=== PATIENT | female | born 1995 | race Caucasian/White ===

== ENCOUNTER 2017-03-18 13:37 | Emergency (ER) | payer OTHER ==
--- NOTE | 2017-03-18 14:25 | EDM.PDOC ---
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 A door of a commercial washer struck her in the nose. She now has a scratch on the bridge of her nose. No other injuries. - Related Data Allergies/ADRs: Allergies Allergy/AdvReac Type Severity Reaction Status Date / Time No Known Allergies Allergy Verified 03/18/17 13:57 Home Meds: Home Meds Control Pill 1 tab PO DAILY 05/02/15 [History] Omeprazole 20 mg PO DAILY 03/18/17 [History] Spironolactone [Aldactone] 12.5 mg PO DAILY 03/18/17 [History] Past Medical History - Past Health History Medical/Surgical History: Denies Medical/Surgical History Social & Family History - Family History Family Medical History: Noncontributory - Tobacco Use Smoking Status *Q: Never Smoker Years of Tobacco use: 7 Used Tobacco, but Quit: No Second Hand Smoke Exposure: No - Caffeine Use Caffeine Use: Reports: None - Alcohol Use Days Per Week of Alcohol Use: 2 Number of Drinks Per Day: 3 Total Drinks Per Week: 6 - Recreational Drug Use Recreational Drug Use: No ED ROS ENT - Review of Systems Review Of Systems: ROS reveals no pertinent complaints other than HPI. ED EXAM, ENT - Physical Exam Exam: See Below Exam Limited By: No limitations General Appearance: alert, no apparent distress Eye Exam: bilateral eye: EOMI, PERRL Ears: normal external exam Nose: normal inspection Mouth/Throat: Normal inspection Head: atraumatic, normocephalic Neck: normal inspection Respiratory/Chest: no respiratory distress, lungs clear Cardiovascular: normal peripheral pulses, regular rate, rhythm, no murmur GI/Abdominal: soft Neurological: alert, oriented Psychiatric: normal affect, normal mood Skin: Warm, Dry, Intact, Normal color, No rash, Other (0.5 cm skin scratch over bridge of nose. No swelling, bruising, crepitus or deformity of the nasal bridge) Lymphatic: no adenopathy Course - Vital Signs Last Recorded V/S: Last Vital Signs Temp 36.1 C 03/18/17 13:53 Pulse 70 03/18/17 13:53 Resp 16 03/18/17 13:53 BP 118/70 03/18/17 13:53 Pulse Ox 98 03/18/17 13:53 Departure - Departure Time of Disposition: 14:22 Disposition: Home, Self-Care 01 Condition: good Clinical Impression: Laceration Referrals: Cecy Reyes NP [Primary Care Provider] - [facility] [Outside] Forms: ED Department Discharge Additional Instructions: 1. Keep wound clean and dry. 2. Follow up in primary care or occupational health for return to work.
[2017-03-18 14:37] VITALS: BP 126/70
== END 2017-03-18 14:34 | disposition home or self-care (01) ==
LOC: MW.ED 13:37
DX: S01.21XA Laceration without foreign body of nose, initial encounter (principal); Z79.899 Other long term (current) drug therapy; W22.8XXA Striking against or struck by other objects, initial encounter; Y99.0 Civilian activity done for income or pay
CPT/HCPCS: 99282

== ENCOUNTER 2018-06-28 20:07 | Emergency (ER) | payer OTHER ==
[2018-06-28] MEDS ORDERED: Sodium Chloride 0.9% 1,000 ML IV ONE (20:10)
[2018-06-28] MEDS ORDERED: Ketorolac 30 MG/ML SDV IVPUSH ONE (20:10)
--- NOTE | 2018-06-28 20:20 | EDM.PDOC ---
ED HPI GENERAL MEDICAL PROBLEM - General Chief Complaint: Chest Pain Stated Complaint: CHEST PAIN. Time Seen by Provider: 06/28/18 20:09 Source of Information: Reports: Patient History Limitations: Reports: No Limitations - History of Present Illness INITIAL COMMENTS - FREE TEXT/NARRATIVE: HISTORY AND PHYSICAL: History of present illness: patient is a 23-year-old female who presents to emergency room today wit complaints of midsternal chest pain 2 weeks. She states last week she saw Dr. Coley at [facility] and was prescribed omeprazole, prednisone and Diclofenac. She was diagnosed with what sounds like costochondritis. She states that the pain has not improved and she is concerned. she states the pain is worse with movement or touch. Pain is alleviated by rest. she denies any fever, chills, cough, abdominal pain, nausea, vomiting, diarrhea or constipation. No history of smoking. Review of systems: As per history of present illness and below otherwise all systems reviewed and negative. Past medical history: As per history of present illness and as reviewed below otherwise noncontributory. Surgical history: As per history of present illness and as reviewed below otherwise noncontributory. Social history: No reported history of drug or alcohol abuse. Family history: As per history of present illness and as reviewed below otherwise noncontributory. Physical exam: General: well-developed and well-nourished 33-year-old female. Alert and oriented. Nontoxic appearing and in no acute distress. HEENT: Atraumatic, normocephalic, pupils equal and reactive bilaterally, negative for conjunctival pallor or scleral icterus, mucous membranes moist, throat clear, neck supple, nontender, trachea midline. No drooling or trismus noted. No meningeal signs Lungs: Clear to auscultation, breath sounds equal bilaterally, chest pain is reproducible with palpation Heart: S1S2, regular rate and rhythm without overt murmur Abdomen: Soft, nondistended, nontender. Negative for masses or hepatosplenomegaly. Negative for costovertebral tenderness. Pelvis: Stable nontender. 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: Deferred. Rectal: Deferred. Skin: Intact, warm, dry. No lesions or rashes noted. Extremities: Atraumatic, negative for cords or calf pain. Neurovascular unremarkable. Neuro: Awake, alert, oriented. Cranial nerves II through XII unremarkable. Cerebellum unremarkable. Motor and sensory unremarkable throughout. Exam nonfocal. Notes: Patient does have a slightly elevated WBC, without evidence of pneumonia or infiltrate. patient states she has been routinely using the medications that were prescribed to her last week without much relief. Supportive care measures were reviewed and discussed. She voices understanding and is agreeable to plan of care. Denies any further questions or concerns at this time. Diagnostics: CBC, CMP, CXR, H.Pylori [employer]: Normal Saline, Toradol Prescription: [facility]pack Tramadol Impression: Costochondritis Plan: 1. Please continue taking the medications that Dr. Woodard had prescribed. 2. Tramadol as needed for moderate to sever pain. 3. Follow up with your primary care provider in the next 1-2 days. Return to the ED as needed as discussed. Definitive disposition and diagnosis as appropriate pending reevaluation and review of above. Chest Pain Score (Numeric/FACES): 10 - Related Data Allergies Allergy/AdvReac Type Severity Reaction Status Date / Time No Known Allergies Allergy Verified 03/18/17 13:57 Home Meds: Home Meds Control Pill 1 tab PO DAILY 05/02/15 [History] Omeprazole 20 mg PO DAILY 03/18/17 [History] Spironolactone [Aldactone] 12.5 mg PO DAILY 03/18/17 [History] Past Medical History - Past Health History Medical/Surgical History: Denies Medical/Surgical History HEENT History: Reports: None Cardiovascular History: Reports: None Respiratory History: Reports: None Gastrointestinal History: Reports: None 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 History: Reports: Other (See Below) Other 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 History: PCOS 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 Musculoskeletal History: Reports: None Neurological History: Reports: None Psychiatric History: Reports: None Endocrine/Metabolic History: Reports: None Hematologic History: Reports: None Immunologic History: Reports: None Oncologic (Cancer) History: Reports: None Dermatologic History: Reports: None - Infectious Disease History Infectious Disease History: Reports: None - Past Surgical History Head Surgeries/Procedures: Reports: None HEENT Surgical History: Reports: None Cardiovascular Surgical History: Reports: None Respiratory Surgical History: Reports: None GI Surgical History: Reports: None Musculoskeletal Surgical History: Reports: None Dermatological Surgical History: Reports: None Social & Family History - Family History Family Medical History: Noncontributory - Caffeine Use Caffeine Use: Reports: None ED ROS GENERAL - Review of Systems Review Of Systems: ROS reveals no pertinent complaints other than HPI. ED EXAM, GENERAL - Physical Exam Exam: See Below (See dictation) Course - Vital Signs Last Recorded V/S: Last Vital Signs Temp 98.4 F 06/28/18 20:16 Pulse 78 06/28/18 20:16 Resp 18 06/28/18 20:16 BP 140/92 H 06/28/18 20:16 Pulse Ox 98 06/28/18 20:16 - Orders/Labs/Meds Orders: Active Orders 24 hr Category Date Time Status EKG Documentation Completion [RC] STAT Care 06/28/18 20:10 Active Chest 2V [CR] Stat Exams 06/28/18 20:10 Taken HCG QUALITATIVE,URINE [URCHEM] Stat Lab 06/28/18 20:32 Ordered URINALYSIS W/MICROSCOPIC [UA W/MICROSCOPIC] [URIN] Stat Lab 06/28/18 20:32 Ordered Labs: Laboratory Tests 06/28/18 06/28/18 06/28/18 Range/Units 20:14 20:14 20:32 WBC 14.55 H (4.0-11.0) K/uL RBC 4.68 (4.30-5.90) M/uL Hgb 14.2 (12.0-16.0) g/dL Hct 41.3 (36.0-46.0) % MCV 88.2 (80.0-98.0) fL MCH 30.3 (27.0-32.0) pg MCHC 34.4 (31.0-37.0) g/dL RDW Std Deviation 40.6 (28.0-62.0) fl RDW Coeff of Akash 13 (11.0-15.0) % Plt Count 287 (150-400) K/uL MPV 10.20 (7.40-12.00) fL Neut % (Auto) 75.4 (48.0-80.0) % Lymph % (Auto) 20.0 (16.0-40.0) % [place] % (Auto) 4.4 (0.0-15.0) % Eos % (Auto) 0.1 (0.0-7.0) % Baso % (Auto) 0.1 (0.0-1.5) % Neut # (Auto) 11.0 H (1.4-5.7) K/uL Lymph # (Auto) 2.9 H (0.6-2.4) K/uL [place] # (Auto) 0.6 (0.0-0.8) K/uL Eos # (Auto) 0.0 (0.0-0.7) K/uL Baso # (Auto) 0.0 (0.0-0.1) K/uL Nucleated RBC % 0.0 /100WBC Nucleated RBCs # 0 K/uL Sodium 140 (136-145) mmol/L Potassium 3.5 (3.5-5.1) mmol/L Chloride 102 (98-107) mmol/L Carbon Dioxide 26.0 (21.0-32.0) mmol/L BUN 11 (7.0-18.0) mg/dL Creatinine 0.9 (0.6-1.0) mg/dL Est Cr Clr Drug Dosing 79.04 mL/min Estimated GFR (MDRD) > 60.0 ml/min Glucose 126 H (74-106) mg/dL Calcium 9.2 (8.5-10.1) mg/dL Total Bilirubin 0.3 (0.2-1.0) mg/dL AST 19 (15-37) IU/L ALT 42 (14-63) IU/L Alkaline Phosphatase 75 (46-116) U/L Total Protein 8.1 (6.4-8.2) g/dL Albumin 4.1 (3.4-5.0) g/dL Globulin 4.0 H (2.0-3.5) g/dL Albumin/Globulin Ratio 1.0 L (1.3-2.8) Urine Color YELLOW Urine Appearance CLEAR Urine pH 6.0 (5.0-8.0) Ur Specific [place] >= 1.030 (1.001-1.035) Urine Protein NEGATIVE (NEGATIVE) mg/dL Urine Glucose (UA) NEGATIVE (NEGATIVE) mg/dL Urine Ketones NEGATIVE (NEGATIVE) mg/dL Urine Occult Blood MODERATE (NEGATIVE) Urine Nitrite NEGATIVE (NEGATIVE) Urine Bilirubin NEGATIVE (NEGATIVE) Urine Urobilinogen 0.2 (<2.0) EU/dL Ur Leukocyte Esterase NEGATIVE (NEGATIVE) Urine RBC 2-4 (0-2/HPF) Urine WBC 0-2 (0-5/HPF) Ur Epithelial Cells MODERATE (NONE-FEW) Urine Bacteria FEW (NEGATIVE) Urine HCG, Qual (NEGATIVE) 06/28/18 Range/Units 20:32 WBC (4.0-11.0) K/uL RBC (4.30-5.90) M/uL Hgb (12.0-16.0) g/dL Hct (36.0-46.0) % MCV (80.0-98.0) fL MCH (27.0-32.0) pg MCHC (31.0-37.0) g/dL RDW Std Deviation (28.0-62.0) fl RDW Coeff of Akash (11.0-15.0) % Plt Count (150-400) K/uL MPV (7.40-12.00) fL Neut % (Auto) (48.0-80.0) % Lymph % (Auto) (16.0-40.0) % [place] % (Auto) (0.0-15.0) % Eos % (Auto) (0.0-7.0) % Baso % (Auto) (0.0-1.5) % Neut # (Auto) (1.4-5.7) K/uL Lymph # (Auto) (0.6-2.4) K/uL [place] # (Auto) (0.0-0.8) K/uL Eos # (Auto) (0.0-0.7) K/uL Baso # (Auto) (0.0-0.1) K/uL Nucleated RBC % /100WBC Nucleated RBCs # K/uL Sodium (136-145) mmol/L Potassium (3.5-5.1) mmol/L Chloride (98-107) mmol/L Carbon Dioxide (21.0-32.0) mmol/L BUN (7.0-18.0) mg/dL Creatinine (0.6-1.0) mg/dL Est Cr Clr Drug Dosing mL/min Estimated GFR (MDRD) ml/min Glucose (74-106) mg/dL Calcium (8.5-10.1) mg/dL Total Bilirubin (0.2-1.0) mg/dL AST (15-37) IU/L ALT (14-63) IU/L Alkaline Phosphatase (46-116) U/L Total Protein (6.4-8.2) g/dL Albumin (3.4-5.0) g/dL Globulin (2.0-3.5) g/dL Albumin/Globulin Ratio (1.3-2.8) Urine Color Urine Appearance Urine pH (5.0-8.0) Ur Specific [place] (1.001-1.035) Urine Protein (NEGATIVE) mg/dL Urine Glucose (UA) (NEGATIVE) mg/dL Urine Ketones (NEGATIVE) mg/dL Urine Occult Blood (NEGATIVE) Urine Nitrite (NEGATIVE) Urine Bilirubin (NEGATIVE) Urine Urobilinogen (<2.0) EU/dL Ur Leukocyte Esterase (NEGATIVE) Urine RBC (0-2/HPF) Urine WBC (0-5/HPF) Ur Epithelial Cells (NONE-FEW) Urine Bacteria (NEGATIVE) Urine HCG, Qual NEGATIVE (NEGATIVE) Meds: Medications Discontinued Medications Generic Name Dose Route Start Last Admin Trade Name Freq PRN Reason Stop Dose Admin Sodium Chloride 1,000 mls @ 999 mls/hr 06/28/18 20:10 06/28/18 20:20 Normal Saline IV 06/28/18 21:10 999 mls/hr STAT ONE Administration Ketorolac Tromethamine 30 mg 06/28/18 20:10 06/28/18 20:22 Toradol IVPUSH 06/28/18 20:11 30 mg ONETIME ONE Administration Departure - Departure Time of Disposition: 21:36 Disposition: Home, Self-Care 01 Clinical Impression: Costochondral chest pain Instructions: Costochondritis, [id number] Referrals: PCP,None [Primary Care Provider] - Forms: ED Department Discharge Additional Instructions: The following information is given to patients seen in the emergency department who are being discharged to home. This information is to outline your options for follow-up care. We provide all patients seen in our emergency department with a follow-up referral. The need for follow-up, as well as the timing and circumstances, are variable depending upon the specifics of your emergency department visit. If you don't have a primary care physician on staff, we will provide you with a referral. We always advise you to contact your personal physician following an emergency department visit to inform them of the circumstance of the visit and for follow-up with them and/or the need for any referrals to a consulting specialist. The emergency department will also refer you to a specialist when appropriate. This referral assures that you have the opportunity for follow-up care with a specialist. All of these measure are taken in an effort to provide you with optimal care, which includes your follow-up. Under all circumstances we always encourage you to contact your private physician who remains a resource for coordinating your care. When calling for follow-up care, please make the office aware that this follow-up is from your recent emergency room visit. If for any reason you are refused follow-up, please contact the [facility] Emergency Department at and asked to speak to the emergency department charge nurse. [facility] [address] [place] [address] 1. Please continue taking the medications that Dr. Woodard had prescribed. 2. Tramadol as needed for moderate to sever pain. 3. Follow up with your primary care provider in the next 1-2 days. Return to the ED as needed as discussed. - My Orders Last 24 Hours: My Active Orders 06/28/18 20:10 EKG Documentation Completion [RC] STAT Chest 2V [CR] Stat 06/28/18 20:32 HCG QUALITATIVE,URINE [URCHEM] Stat URINALYSIS W/MICROSCOPIC [UA W/MICROSCOPIC] [URIN] Stat - Assessment/Plan Last 24 Hours: My Active Orders 06/28/18 20:10 EKG Documentation Completion [RC] STAT Chest 2V [CR] Stat 06/28/18 20:32 HCG QUALITATIVE,URINE [URCHEM] Stat URINALYSIS W/MICROSCOPIC [UA W/MICROSCOPIC] [URIN] Stat
[2018-06-28 20:50] LABS: CHLORIDE,CL 102 mmol/L (98-107); SODIUM,NA 140 mmol/L (136-145)
[2018-06-29] VITALS: BP 118/72
--- NOTE | 2018-06-29 13:50 | CR ---
EXAM DATE: 06/28/18 PATIENT'S AGE: 23 Patient: JUSTO DAIGLE Facility: [place], [place] Site . Site : 1995 Study: XRay Chest [id number]/12/2018 9:23:16 PM Ordering Physician: Doctor Gómez Final Report: CHEST 2 VIEWS INDICATION: Chest pain. IMPRESSION: Normal heart size and vascular pattern. Lungs are clear. No pneumothorax or pleural abnormality. Dictated by Barrera Flores MD @ Jun 28 2018 9:32PM (Electronic Signature) Report Signed by Proxy. HOLLY
== END 2018-06-28 21:56 | disposition home or self-care (01) ==
LOC: MW.ED 20:07
DX: M94.0 Chondrocostal junction syndrome [Tietze] (principal)
CPT/HCPCS: 36415; 71046; 80053; 81001; 81025; 85025; 93005; 96361; 96374; 99285; J1885; J7040; 99283

== ENCOUNTER 2019-04-12 22:00 | Inpatient (IN) | payer OTHER ==
[2019-04-12] MEDS ORDERED: Terbutaline 1 MG/ML SDV SUBCUT PRN (22:30)
[2019-04-12] MEDS ORDERED: Sodium Chloride 0.9% 2.5 ML Syringe FLUSH PRN (22:30)
[2019-04-12] MEDS ORDERED: Sodium Chloride 0.9% 10 ML Syringe FLUSH PRN (22:30)
[2019-04-12] MEDS ORDERED: Carboprost Tromethamine 250 MCG/1 ML Amp IM PRN (22:30)
[2019-04-12] MEDS ORDERED: Oxytocin/0.9 % Sodium Chloride 30 UNIT/500 ML BAG IV SCH ×2 (22:30)
[2019-04-12] MEDS ORDERED: Lidocaine 1% 50 ML MDV INJECT PRN (22:30)
[2019-04-12] MEDS ORDERED: Water For Irrigation,Sterile 1,000 ML Container IRR PRN (22:30)
[2019-04-12] MEDS ORDERED: Misoprostol 200 MCG Tab PO PRN (22:30)
[2019-04-12] MEDS ORDERED: Nalbuphine 10 MG/1 ML Vial IVPUSH PRN (22:30)
[2019-04-12] MEDS ORDERED: Tranexamic Acid 1,000 MG in Sodium Chloride 0.9% 100 ML IV PRN (22:30)
[2019-04-12] MEDS ORDERED: Misoprostol 25 MCG (1/4 of 100 MCG) Tab VAG PRN ×2 (22:30)
[2019-04-12] MEDS ORDERED: Sodium Chloride 0.9% 10 ML SDV IV PRN (22:30)
[2019-04-12] MEDS ORDERED: Methylergonovine 0.2 MG/1 ML Amp IM PRN (22:30)
[2019-04-13] MEDS: Lactated Ringers 1,000 ML IV SCH ×2 (03:17→09:58)
[2019-04-13] MEDS: Butorphanol 1 MG/ML SDV IVPUSH PRN ×2 (04:17→06:27)
[2019-04-13] MEDS ORDERED: fentaNYL 100 MCG/2 ML SDV ONE (09:42)
[2019-04-13] MEDS ORDERED: Ropivacaine 0.2% 2 MG/ML 20 ML SDV ONE (09:43)
--- NOTE | 2019-04-13 10:04 | PCM.PREANE ---
Preanesthetic Assessment - Anesthesia/Transfusion/Family Hx Anesthesia History: No Prior Anesthesia Family History of Anesthesia Reaction: No - Review of Systems General: No Symptoms Pulmonary: No Symptoms Cardiovascular: No Symptoms Gastrointestinal: No Symptoms Neurological: No Symptoms Other: Reports: None - Physical Assessment NPO Status Date: 04/13/19 Height: 5 ft 3 in Weight: 87.09 kg ASA Class: 2 Mental Status: Alert & Oriented x3 Airway Class: Mallampati = 2 Dentition: Reports: Normal Dentition ROM/Head Extension: Full Lungs: Clear to Auscultation, Normal Respiratory Effort Cardiovascular: Regular Rate - Lab Values: Laboratory Last Values WBC 12.13 K/uL (4.0-11.0) H 04/12/19 22:48 RBC 4.20 M/uL (4.30-5.90) L 04/12/19 22:48 Hgb 13.1 g/dL (12.0-16.0) 04/12/19 22:48 Hct 39.4 % (36.0-46.0) 04/12/19 22:48 MCV 93.8 fL (80.0-98.0) 04/12/19 22:48 MCH 31.2 pg (27.0-32.0) 04/12/19 22:48 MCHC 33.2 g/dL (31.0-37.0) 04/12/19 22:48 RDW Std Deviation 48.0 fl (28.0-62.0) 04/12/19 22:48 RDW Coeff of Akash 14 % (11.0-15.0) 04/12/19 22:48 Plt Count 182 K/uL (150-400) 04/12/19 22:48 MPV 12.00 fL (7.40-12.00) 04/12/19 22:48 Nucleated RBC % 0.0 /100WBC 04/12/19 22:48 Nucleated RBCs # 0 K/uL 04/12/19 22:48 Blood Type A POSITIVE 04/12/19 22:48 Antibody Screen NEGATIVE 04/12/19 22:48 - Allergies Allergies/Adverse Reactions: Allergies Allergy/AdvReac Type Severity Reaction Status Date / Time No Known Allergies Allergy Verified 04/12/19 22:29 - Blood Blood Available: No - Anesthesia Plan Pre-Op Medication Ordered: None - Acknowledgements Anesthesia Type Planned: Epidural Pt an Appropriate Candidate for the Planned Anesthesia: Yes Alternatives and Risks of Anesthesia Discussed w Pt/Guardian: Yes Pt/Guardian Understands and Agrees with Anesthesia Plan: Yes Additional Comments: primip, post dates, 182k plts, ph denied, gest probs denied PreAnesthesia Questionnaire - Past Health History Medical/Surgical History: Denies Medical/Surgical History HEENT History: Reports: None Cardiovascular History: Reports: None Respiratory History: Reports: None Gastrointestinal History: Reports: None 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 History: Reports: Other (See Below) Other 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 History: 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 Musculoskeletal History: Reports: None Neurological History: Reports: None Psychiatric History: Reports: None Endocrine/Metabolic History: Reports: None Hematologic History: Reports: None Immunologic History: Reports: None Oncologic (Cancer) History: Reports: None Dermatologic History: Reports: None - Infectious Disease History Infectious Disease History: Reports: None - Past Surgical History Head Surgeries/Procedures: Reports: None HEENT Surgical History: Reports: None Cardiovascular Surgical History: Reports: None Respiratory Surgical History: Reports: None GI Surgical History: Reports: None Musculoskeletal Surgical History: Reports: None Dermatological Surgical History: Reports: None - SUBSTANCE USE Smoking Status *Q: Former Smoker Tobacco Use Within Last Twelve Months: Cigarettes Recreational Drug Use History: No - HOME MEDS Home Medications: Home Meds Control Pill 1 tab PO DAILY 05/02/15 [History] Omeprazole 20 mg PO DAILY 03/18/17 [History] Spironolactone [Aldactone] 12.5 mg PO DAILY 03/18/17 [History] - CURRENT (IN HOUSE) MEDS Current Meds: Current Medications Butorphanol Tartrate (Stadol) 1 mg IVPUSH Q1H PRN PRN Reason: Pain Last Admin: 04/13/19 06:27 Dose: 1 mg Carboprost Tromethamine (Hemabate Ds) 250 mcg IM ASDIRECTED PRN PRN Reason: Post Hemorrhage Lactated Ringer's (Ringers, Lactated) 1,000 mls @ 150 mls/hr IV ASDIRECTED EVERETTE Last Admin: 04/13/19 03:17 Dose: 150 mls/hr Oxytocin/Sodium Chloride (Oxytocin 30 Unit/500 Ml-Ns) 30 unit in 500 mls @ 500 mls/hr IV TITRATE EVERETTE Oxytocin/Sodium Chloride (Oxytocin 30 Unit/500 Ml-Ns) 30 unit in 500 mls @ 2 mls/hr IV TITRATE EVERETTE; Protocol Last Admin: 04/13/19 08:18 Dose: 2 munits/min, 2 mls/hr Tranexamic Acid 1,000 mg/ (Sodium Chloride) 110 mls @ 660 mls/hr IV ONETIME PRN PRN Reason: Bleeding Lidocaine HCl (Xylocaine 1%) 50 ml INJECT ONETIME PRN PRN Reason: Laceration repair Methylergonovine Maleate (Methergine) 0.2 mg IM ASDIRECTED PRN PRN Reason: Post Hemorrhage Misoprostol (Cytotec) 200 mcg PO ONETIME PRN PRN Reason: Post Hemorrhage Misoprostol (Cytotec) 25 mcg VAG ONETIME PRN PRN Reason: Cervical Ripening Last Admin: 04/12/19 23:15 Dose: 25 mcg Misoprostol (Cytotec) 25 mcg VAG Q4H PRN PRN Reason: Cervical Ripening Nalbuphine HCl (Nubain) 10 mg IVPUSH Q1H PRN PRN Reason: Pain (severe 7-10) Sodium Chloride (Saline Flush) 10 ml FLUSH ASDIRECTED PRN PRN Reason: Keep Vein Open Sodium Chloride (Saline Flush) 2.5 ml FLUSH ASDIRECTED PRN PRN Reason: Keep Vein Open Sodium Chloride (Normal Saline) 10 ml IV ASDIRECTED PRN PRN Reason: IV Use Sterile Water (Sterile Water For Irrigation) 1,000 ml IRR ASDIRECTED PRN PRN Reason: delivery Terbutaline Sulfate (Brethine) 0.25 mg SUBCUT ASDIRECTED PRN PRN Reason: Tacysystole Discontinued Medications Fentanyl (Sublimaze) Confirm Administered Dose 100 mcg .ROUTE .STK-MED ONE Stop: 04/13/19 09:43 Fentanyl/Bupivacaine HCl (Nsxhulda-Owxdp-Ec 2 Mcg/Ml-0.125%) Confirm Administered Dose 100 mls @ as directed .ROUTE .STK-MED ONE Stop: 04/13/19 09:43 Ropivacaine (Naropin 0.2%) Confirm Administered Dose 20 ml .ROUTE .STK-MED ONE Stop: 04/13/19 09:44
[2019-04-13] MEDS ORDERED: Ondansetron 4 MG/2 ML SDV IVPUSH PRN (19:19)
[2019-04-13] MEDS ORDERED: Acetaminophen 500 MG Tab PO ONE (19:38)
[2019-04-13] MEDS ORDERED: Sodium Chloride 0.9% Irrigation 500 ML Container IRR PRN (19:44)
[2019-04-14] MEDS ORDERED: Bupivacaine 0.5% 10 ML SDV ONE (00:01)
[2019-04-14] MEDS ORDERED: ceFAZolin 2 GM in Premix Bag 1 BAG IV ONE (00:06)
[2019-04-14] MEDS ORDERED: Sodium Chloride 0.9% 10 ML SDV IV PRN (00:06)
[2019-04-14] MEDS ORDERED: Citric Acid/Sodium Citrate Solution 30 ML Cup PO ONE (00:06)
[2019-04-14] MEDS ORDERED: Sodium Chloride 0.9% 10 ML Syringe FLUSH PRN (00:06)
[2019-04-14] MEDS ORDERED: Sodium Chloride 0.9% 2.5 ML Syringe FLUSH PRN (00:06)
[2019-04-14] MEDS ORDERED: Oxytocin 10 Units/1 ML SDV ONE (00:14)
[2019-04-14] MEDS ORDERED: ceFAZolin 1 GM Vial ONE (00:15)
[2019-04-14] MEDS ORDERED: Oxytocin/0.9 % Sodium Chloride 30 UNIT/500 ML BAG IV SCH (00:15)
[2019-04-14] MEDS ORDERED: Sodium Chloride 0.9% 20 ML ONE (00:15)
[2019-04-14] MEDS ORDERED: Ondansetron 4 MG/2 ML SDV ONE (00:15)
[2019-04-14] MEDS ORDERED: fentaNYL 100 MCG/2 ML SDV ONE (00:25)
[2019-04-14] MEDS ORDERED: Midazolam 1 MG/ML 2 ML SDV ONE (00:29)
[2019-04-14] MEDS ORDERED: Morphine PF 10 MG/10 ML SDV ONE (00:37)
[2019-04-14] MEDS ORDERED: Simethicone 80 MG Tab.Chew PO PRN (01:08)
[2019-04-14] MEDS ORDERED: Bisacodyl 10 MG Supp RECTAL PRN (01:08)
[2019-04-14] MEDS ORDERED: Ondansetron 4 MG/2 ML SDV IVPUSH PRN (01:08)
[2019-04-14] MEDS ORDERED: diphenhydrAMINE 50 MG/ML SDV IVPUSH PRN ×2 (01:08→01:41)
[2019-04-14] MEDS ORDERED: Aluminum Hydroxide/Magnesium Hydroxide/Simethicone Susp 30 ML Cup PO PRN (01:08)
[2019-04-14] MEDS ORDERED: Lanolin 100% Cream 7 GM Tube TOP PRN (01:08)
[2019-04-14] MEDS ORDERED: Lactated Ringers 1,000 ML IV SCH (01:15)
--- NOTE | 2019-04-14 01:17 | PCM.OPNOTE ---
- General Post-Op/Procedure Note Date of Surgery/Procedure: 04/14/19 Operative Procedure(s): Primary LTCS Findings: Viable female APGARs 8, 9 weight 3330 gm. Intact placenta with 3 V cord. Pre Op Diagnosis: 40/5 week IUP. Abnormal heart tones Post-Op Diagnosis: Same Anesthesia Technique: Epidural Primary Surgeon: Maggi Hernandez English Faculty Member: Radha Anna Fluid Replacement, Intraop: 1,000 EBL in mLs: 500 Complications: none known Condition: Good Free Text/Narrative:: Dictation [id number]
--- NOTE | 2019-04-14 01:35 | PCM.POSTAN ---
POST ANESTHESIA ASSESSMENT - MENTAL STATUS Mental Status: Alert, Oriented - VITAL SIGNS Pulse Rate: 118 SaO2: 97 Resp Rate: 18 Blood Pressure: 126/78 - RESPIRATORY Respiratory Status: Respiratory Rate WNL, Airway Patent, O2 Saturation Stable - CARDIOVASCULAR CV Status: Pulse Rate WNL, Blood Pressure Stable - GASTROINTESTINAL GI Status: No Symptoms - PAIN Pain Score: 2 - POST OP HYDRATION Hydration Status: Adequate & Stable
[2019-04-14] MEDS ORDERED: Naloxone 0.4 MG/ML Syringe IVPUSH PRN (01:41)
[2019-04-14] MEDS ORDERED: Nalbuphine 10 MG/1 ML Vial IVPUSH PRN (01:41)
[2019-04-14] MEDS: Ketorolac 30 MG/ML SDV IVPUSH SCH ×4 (01:49→19:26)
--- NOTE | 2019-04-14 06:11 | OR ---
SURGEON: Maggi Hernandez M.D. DATE OF PROCEDURE: 04/14/2019 PREOPERATIVE DIAGNOSES: 1. 40 and 5 weeks intrauterine . 2. Abnormal heart tones. POSTOPERATIVE DIAGNOSES: 1. 40 and 5 weeks intrauterine . 2. Abnormal heart tones. PROCEDURE: Primary low-transverse section. PRIMARY SURGEON: Maggi Hernandez M.D. ANESTHESIA: Epidural. ESTIMATED BLOOD LOSS: 500 mL. FLUIDS: 1000 mL of crystalloid in the OR. COMPLICATION: None. FINDINGS: A viable female, scores 8 at 1 minute and 9 at 5 minutes, weight of 3330 g; intact placenta; 3-vessel cord; and normal-appearing pelvis. DISPOSITION: to nursery. Mom in LDRP. PROCEDURE IN DETAIL: Lissa is a 23-year-old G1, P0, at 40 and 4 weeks gestational age when she was presented for a scheduled induction of labor for past-due . She was initiated on Cytotec, responded nicely to this, the following morning was found to be 3 to 4 cm, was initiated on Pitocin induction, underwent amniotomy shortly after 9 a.m., became increasingly uncomfortable, underwent epidural, underwent this satisfactorily, became more comfortable, and throughout the early afternoon hours, was able to make progression to approximately 5 to 6 cm dilatation. However, during this time also, there were episodes of intermittent variable decelerations with late component, therefore, performed positional changes, oxygen supplementation, and IV fluid hydration, and the patient did well with this. She continued to progress slowly over the late afternoon, early evening hours, however, was having recurrent late decelerations at this point, initiated amnioinfusion with positional changes and oxygen supplementation and discontinued Pitocin. Despite these efforts, the patient was able to progress to 8 cm, however, with at this point recurrent late decelerations, therefore, given still somewhat remote from delivery and a persistent category 2 heart rate tracing, discussed options with the patient and her significant other. At this juncture, they are wanting to proceed with a delivery. The risks of the procedure were discussed,and proper consent was obtained. The patient was taken to the operating room, where she underwent a bolus of her epidural, was placed in dorsal position, leftward tilt, SCDs to the lower extremities, García to gravity, was prepped and draped in the usual sterile fashion. She received Ancef prophylactically. A time-out was performed. Anesthesia was tested and found to be adequate. A Pfannenstiel skin incision was now created and carried down to the level of the rectus fascia, which was incised in the midline and lateralized on either side sharply and bluntly. The superior aspect of the fascia was tented upward and dissected sharply and bluntly from the underlying muscle. A similar aspect was performed at the inferior aspect of the fascia. The rectus muscle was in the midline. The peritoneum was entered. The rectus muscle and peritoneum were lateralized bluntly. Uterine position and position were gently palpated. A self- retaining retractor was now gently placed. The uterovesical reflection was visualized. Bladder flap was created sharply and bluntly, and the bladder was mobilized away from the lower uterine segment. A low transverse hysterotomy was performed. The uterine cavity was entered bluntly with the scalpel. The hysterotomy was lateralized bluntly. Clear fluid was returned. The 's head was flexed and delivered from the pelvis. Fundal pressure was applied. The head was delivered, followed by anterior shoulder, posterior shoulder, and remaining body without difficulty. The infant's oropharynx and nares were bulb suctioned. The did not have good tone at this point, therefore, was passed immediately off to nursing staff with the attending truck operator after the cord was clamped x2 and cut. Cord arterial, cord venous, and cord blood sampling were obtained. Light pressure was applied while the placenta was now delivered. The uterine cavity was cleared of all clot and debris. The placenta will be sent to Pathology for further analysis. The hysterotomy was repaired using 0 Vicryl in continuous running locked fashion, followed by a re- imbricating layer. An area of oozing in the midline was repaired with a figure- of-eight suture. Hemostasis was thereafter evident. Any areas of serosal oozing were cauterized. The posterior aspect of the uterus was inspected, and no defects or hematomas were found be forming. The region was well irrigated and suction dried. Colonic gutters were cleared of all clot and debris, well irrigated, and suction dried. The hysterotomy was again inspected and found to be hemostatic. The self-retaining retractor was now gently removed. The bladder blade was placed. The hysterotomy was once again inspected and found to be hemostatic. The uterus remained firm. The rectus muscle and peritoneum were now reapproximated using 0 Vicryl in an inverted mattress suture technique. The anterior aspect of the posterior fascia was closely inspected. Any areas of oozing were cauterized. The rectus fascia was reapproximated using 0 Vicryl in a continuous running fashion beginning laterally on each side and meeting in the midline. Subcutaneous tissue was well irrigated and suction dried. Any areas of oozing were cauterized. The skin edges were reapproximated using 3-0 Monocryl in a subcuticular fashion and then re-imbricated with half-inch Steri- Strips and Mastisol. The uterus remained firm. Sponge, instrument, and needle counts were correct x3. The patient tolerated the procedure well. She will go to the PACU in stable condition, to nursery, and placenta to Pathology. MICHELE / XIAO /[id number]
--- NOTE | 2019-04-14 09:19 | PCM.PNPP ---
- General Info Date of Service: 04/14/19 Functional Status: Reports: Pain Controlled, Tolerating Diet - Review of Systems General: Reports: Fatigue. Denies: Fever, Weakness Pulmonary: Denies: Shortness of Breath Cardiovascular: Denies: Chest Pain, Palpitations, Lightheadedness Gastrointestinal: Reports: Abdominal Pain (controlled with pain meds from incision). Denies: Nausea, Vomiting 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: Denies: Flank Pain Skin: Reports: No Symptoms Neurological: Reports: No Symptoms Psychiatric: Reports: No Symptoms - Patient Data Vital Signs - Most Recent: Last Vital Signs Temp 36.2 C 04/14/19 08:00 Pulse 90 04/14/19 04:15 Resp 17 04/14/19 09:00 BP 128/76 04/14/19 08:00 Pulse Ox 96 04/14/19 09:00 Weight - Most Recent: 87.09 kg I&O - Last 24 Hours: Intake & Output 04/13/19 04/14/19 04/14/19 22:59 06:59 14:59 Intake Total 2000 Output Total 1500 Balance 500 Lab Results - Last 24 Hours: Laboratory Results - last 24 hr 04/14/19 04/14/19 Range/Units 00:27 06:30 Hgb 11.0 L (12.0-16.0) g/dL Hct 33.3 L (36.0-46.0) % Cord ABG pH 7.075 L (7.18-7.38) Cord ABG Base Excess -13 L (-10--2) Cord VBG pH 7.119 L (7.25-7.45) Cord VBG Base Excess -13 L (-10--2) Med Orders - Current: Current Medications Al Hydroxide/Mg Hydroxide (Mag-Al Plus) 30 ml PO Q8H PRN PRN Reason: Heartburn Bisacodyl (Dulcolax) 10 mg RECTAL ONETIME PRN PRN Reason: Constipation Carboprost Tromethamine (Hemabate Ds) 250 mcg IM ASDIRECTED PRN PRN Reason: Post Hemorrhage Diphenhydramine HCl (Benadryl) 25 mg IVPUSH Q6H PRN PRN Reason: Itching or Nausea Diphenhydramine HCl (Benadryl) 25 mg IVPUSH Q4H PRN PRN Reason: Itching Stop: 04/15/19 01:41 Docusate Sodium (Colace) 100 mg PO BID [facility] Emollient Ointment (Lansinoh Hpa) 0 gm TOP ASDIRECTED PRN PRN Reason: Sore Nipples Lactated Ringer's (Ringers, Lactated) 1,000 mls @ 150 mls/hr IV ASDIRECTED [facility] Last Infusion: 04/13/19 10:18 Dose: 150 mls/hr Oxytocin/Sodium Chloride (Oxytocin 30 Unit/500 Ml-Ns) 30 unit in 500 mls @ 500 mls/hr IV TITRATE [facility] Oxytocin/Sodium Chloride (Oxytocin 30 Unit/500 Ml-Ns) 30 unit in 500 mls @ 2 mls/hr IV TITRATE [facility]; Protocol Last Titration: 04/13/19 14:40 Dose: 3 munits/min, 3 mls/hr Tranexamic Acid 1,000 mg/ (Sodium Chloride) 110 mls @ 660 mls/hr IV ONETIME PRN PRN Reason: Bleeding Oxytocin/Sodium Chloride (Oxytocin 30 Unit/500 Ml-Ns) 30 unit in 500 mls @ 250 mls/hr IV TITRATE [facility] Lactated Ringer's (Ringers, Lactated) 1,000 mls @ 125 mls/hr IV ASDIRECTED [facility] Ibuprofen (Motrin) 800 mg PO Q8H PRN PRN Reason: mild pain or fever Ketorolac Tromethamine (Toradol) 30 mg IVPUSH Q6H [facility] Stop: 04/15/19 01:31 Last Admin: 04/14/19 08:06 Dose: 30 mg Methylergonovine Maleate (Methergine) 0.2 mg IM ASDIRECTED PRN PRN Reason: Post Hemorrhage Nalbuphine HCl (Nubain) 5 mg IVPUSH Q3H PRN PRN Reason: Pruritis Stop: 04/15/19 01:41 Naloxone HCl (Narcan) 0.1 mg IVPUSH ONETIME PRN PRN Reason: Respiratory Depression Stop: 04/15/19 01:41 Ondansetron HCl (Zofran) 4 mg IVPUSH Q6H PRN PRN Reason: Nausea/Vomiting Last Admin: 04/13/19 19:28 Dose: 4 mg Ondansetron HCl (Zofran) 4 mg IVPUSH Q4H PRN PRN Reason: Nausea/Vomiting Oxycodone/Acetaminophen (Percocet 325-5 Mg) 1 tab PO Q4H PRN PRN Reason: Pain (moderate 4-6) Oxycodone/Acetaminophen (Percocet 325-5 Mg) 2 tab PO Q4H PRN PRN Reason: Pain (moderate 4-6) Simethicone (Simethicone) 80 mg PO Q4H PRN PRN Reason: Gas Sodium Chloride (Saline Flush) 10 ml FLUSH ASDIRECTED PRN PRN Reason: Keep Vein Open Sodium Chloride (Saline Flush) 2.5 ml FLUSH ASDIRECTED PRN PRN Reason: Keep Vein Open Sodium Chloride (Normal Saline) 10 ml IV ASDIRECTED PRN PRN Reason: IV Use Sodium Chloride (Sodium Chloride 0.9%) 600 ml IRR ASDIRECTED PRN PRN Reason: amnioinfusion Sodium Chloride (Saline Flush) 10 ml FLUSH ASDIRECTED PRN PRN Reason: Keep Vein Open Sodium Chloride (Saline Flush) 2.5 ml FLUSH ASDIRECTED PRN PRN Reason: Keep Vein Open Sodium Chloride (Normal Saline) 10 ml IV ASDIRECTED PRN PRN Reason: IV Use Discontinued Medications Acetaminophen (Tylenol Extra Strength) 1,000 mg PO ONETIME ONE Stop: 04/13/19 19:39 Last Admin: 04/13/19 19:50 Dose: 1,000 mg Bupivacaine HCl (Sensorcaine-Mpf 0.5%) Confirm Administered Dose 20 ml .ROUTE .STK-MED ONE Stop: 04/14/19 00:02 Butorphanol Tartrate (Stadol) 1 mg IVPUSH Q1H PRN PRN Reason: Pain Last Admin: 04/13/19 06:27 Dose: 1 mg Cefazolin Sodium (Ancef) Confirm Administered Dose 2 gm .ROUTE .STK-MED ONE Stop: 04/14/19 00:16 Citric Acid/Sodium Citrate (Bicitra Solution) 30 ml PO ONETIME ONE Stop: 04/14/19 00:07 Fentanyl (Sublimaze) Confirm Administered Dose 100 mcg .ROUTE .STK-MED ONE Stop: 04/13/19 09:43 Fentanyl (Sublimaze) Confirm Administered Dose 100 mcg .ROUTE .STK-MED ONE Stop: 04/14/19 00:26 Fentanyl/Bupivacaine HCl (Tdtgfcmo-Xcquz-Dt 2 Mcg/Ml-0.125%) Confirm Administered Dose 100 mls @ as directed .ROUTE .STK-MED ONE Stop: 04/13/19 09:43 Fentanyl/Bupivacaine HCl (Wczesird-Tezij-Rj 2 Mcg/Ml-0.125%) Confirm Administered Dose 100 mls @ as directed .ROUTE .STK-MED ONE Stop: 04/13/19 18:07 Cefazolin Sodium/Dextrose 2 gm (/ Premix) 50 mls @ 100 mls/hr IV ONETIME ONE Stop: 04/14/19 00:35 Sodium Chloride (Normal Saline) Confirm Administered Dose 20 mls @ as directed .ROUTE .STK-MED ONE Stop: 04/14/19 00:16 Lidocaine HCl (Xylocaine 1%) 50 ml INJECT ONETIME PRN PRN Reason: Laceration repair Midazolam HCl (Versed 1 Mg/Ml) Confirm Administered Dose 2 mg .ROUTE .STK-MED ONE Stop: 04/14/19 00:30 Misoprostol (Cytotec) 200 mcg PO ONETIME PRN PRN Reason: Post Hemorrhage Misoprostol (Cytotec) 25 mcg VAG ONETIME PRN PRN Reason: Cervical Ripening Last Admin: 04/12/19 23:15 Dose: 25 mcg Misoprostol (Cytotec) 25 mcg VAG Q4H PRN PRN Reason: Cervical Ripening Morphine Sulfate (Duramorph Pf) Confirm Administered Dose 10 mg .ROUTE .STK-MED ONE Stop: 04/14/19 00:38 Nalbuphine HCl (Nubain) 10 mg IVPUSH Q1H PRN PRN Reason: Pain (severe 7-10) Ondansetron HCl (Zofran) Confirm Administered Dose 4 mg .ROUTE .STK-MED ONE Stop: 04/14/19 00:16 Oxytocin (Pitocin) Confirm Administered Dose 30 unit .ROUTE .STK-MED ONE Stop: 04/14/19 00:15 Ropivacaine (Naropin 0.2%) Confirm Administered Dose 20 ml .ROUTE .STK-MED ONE Stop: 04/13/19 09:44 Sterile Water (Sterile Water For Irrigation) 1,000 ml IRR ASDIRECTED PRN PRN Reason: delivery Terbutaline Sulfate (Brethine) 0.25 mg SUBCUT ASDIRECTED PRN PRN Reason: Tacysystole - Interaction Support Person: , Other (see below) - Recovery Exam Fundal Tone: Firm Fundal Level: At Umbilicus Fundal Placement: Midline Lochia Amount: Scant Lochia Color: Rubra/Red Perineum Description: Edematous Bladder Status: Indwelling Catheter in Place Urinary Elimination: Indwelling Catheter - Exam General: Alert, Oriented Lungs: Normal Respiratory Effort Cardiovascular: Regular Rate, Regular Rhythm GI/Abdominal Exam: Normal Bowel Sounds, Soft Extremities: Pedal Edema (1+). No: Bijal's Sign Skin: Warm, Dry Wound/Incisions: Dressing Dry and Intact Neurological: No New Focal Deficit Psy/Mental Status: Alert, Normal Affect - Problem List & Annotations (1) intolerance to labor, delivered, current hospitalization SNOMED Code(s): 266309022, 475561822 Code(s): O77.9 - LABOR AND DELIVERY COMPLICATED BY STRESS, UNSPECIFIED Status: Acute Current Visit: Yes - Problem List Review Problem List Initiated/Reviewed/Updated: Yes - My Orders Last 24 Hours: My Active Orders 04/13/19 19:19 Ondansetron [Zofran] 4 mg IVPUSH Q6H PRN 04/13/19 19:44 Sodium Chloride 0.9% 600 ml IRR ASDIRECTED PRN 04/14/19 00:06 Procedure Site Prep Instruct [RC] ASDIRECTED Up ad [place] [RC] ASDIRECTED Sodium Chloride 0.9% [Normal Saline] 10 ml IV ASDIRECTED PRN Sodium Chloride 0.9% [Saline Flush] 10 ml FLUSH ASDIRECTED PRN Sodium Chloride 0.9% [Saline Flush] 2.5 ml FLUSH ASDIRECTED PRN Peripheral IV Insertion Adult [OM.PC] Routine 04/14/19 00:15 Oxytocin/0.9 % Sodium Chloride [Oxytocin 30 Unit/500 ML-NS] 30 unit in 500 ml IV TITRATE 04/14/19 01:08 Patient Status [ADT] Routine Ambulate [RC] PER UNIT ROUTINE Antiembolic Devices [RC] PER UNIT ROUTINE Communication Order [RC] PER UNIT ROUTINE May Shower [RC] ASDIRECTED Notify Provider Intake and Out [RC] ASDIRECTED Notify Provider Vital Signs [RC] ASDIRECTED RT Incentive Spirometry [RC] Q2HWA Acetaminophen/oxyCODONE [Percocet 325-5 MG] 1 tab PO Q4H PRN Acetaminophen/oxyCODONE [Percocet 325-5 MG] 2 tab PO Q4H PRN Alum Hydrox/Mag Hydrox/Simeth [Mag-Al Plus] 30 ml PO Q8H PRN Bisacodyl [Dulcolax] 10 mg RECTAL ONETIME PRN Lanolin [Lansinoh HPA] See Dose Instructions TOP ASDIRECTED PRN Ondansetron [Zofran] 4 mg IVPUSH Q4H PRN Simethicone 80 mg PO Q4H PRN diphenhydrAMINE [Benadryl] 25 mg IVPUSH Q6H PRN Abdominal Binder [OM.PC] Routine Assess Lochia [WOMSER] Per Unit Routine Assess Uterine Involution [WOMSER] Per Unit Routine Breast Pump [WOMSER] Per Unit Routine Heat Therapy [OM.PC] Routine Ice Therapy [OM.PC] Routine Peripheral IV Discontinue [OM.PC] Routine Sequential Compression Device [OM.PC] Per Unit Routine 04/14/19 01:15 Lactated Ringers [Ringers, Lactated] 1,000 ml IV ASDIRECTED 04/14/19 01:30 Ketorolac [Toradol] 30 mg IVPUSH Q6H 04/14/19 09:00 Docusate Sodium [Colace] 100 mg PO BID 04/14/19 Breakfast Regular Diet [DIET] 04/15/19 07:00 Ibuprofen [Motrin] 800 mg PO Q8H PRN - Assessment Assessment:: POD 0 status post LTCS - Plan Plan:: Continue postoperative cares.
[2019-04-14] MEDS: Docusate Sodium 100 MG Cap PO SCH ×2 (09:57→21:17)
[2019-04-15] MEDS: Ketorolac 30 MG/ML SDV IVPUSH SCH (01:26)
[2019-04-15] MEDS: Docusate Sodium 100 MG Cap PO SCH ×2 (08:41→20:33)
[2019-04-15] MEDS: Acetaminophen/oxyCODONE 325-5 MG Tab PO PRN ×3 (08:42→21:03)
--- NOTE | 2019-04-15 08:45 | PCM.PNPP ---
- General Info Date of Service: 04/15/19 Functional Status: Reports: Tolerating Diet, Ambulating, Urinating - Review of Systems General: Reports: Fatigue. Denies: Fever, Weakness Pulmonary: Denies: Shortness of Breath Cardiovascular: Denies: Chest Pain, Palpitations, Lightheadedness Gastrointestinal: Reports: Abdominal Pain (having incisional pain this morning, has not had any oral pain meds until a few minutes ago) 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: Reports: No Symptoms Musculoskeletal: Reports: No Symptoms Skin: Reports: No Symptoms Neurological: Reports: No Symptoms Psychiatric: Reports: No Symptoms - General Info Date of Service: 04/15/19 - Patient Data Vital Signs - Most Recent: Last Vital Signs Temp 36.2 C 04/15/19 04:10 Pulse 88 04/15/19 04:10 Resp 16 04/15/19 04:10 BP 119/73 04/15/19 04:10 Pulse Ox 96 04/15/19 04:10 Weight - Most Recent: 87.09 kg I&O - Last 24 Hours: Intake & Output 04/14/19 04/15/19 04/15/19 22:59 06:59 14:59 Intake Total 1500 Output Total 2650 1500 Balance -2650 0 Med Orders - Current: Current Medications Al Hydroxide/Mg Hydroxide (Mag-Al Plus) 30 ml PO Q8H PRN PRN Reason: Heartburn Bisacodyl (Dulcolax) 10 mg RECTAL ONETIME PRN PRN Reason: Constipation Carboprost Tromethamine (Hemabate Ds) 250 mcg IM ASDIRECTED PRN PRN Reason: Post Hemorrhage Diphenhydramine HCl (Benadryl) 25 mg IVPUSH Q6H PRN PRN Reason: Itching or Nausea Docusate Sodium (Colace) 100 mg PO BID [facility] Last Admin: 04/15/19 08:41 Dose: 100 mg Emollient Ointment (Lansinoh Hpa) 0 gm TOP ASDIRECTED PRN PRN Reason: Sore Nipples Last Admin: 04/14/19 11:44 Dose: 1 tube Lactated Ringer's (Ringers, Lactated) 1,000 mls @ 150 mls/hr IV ASDIRECTED [facility] Last Infusion: 04/13/19 10:18 Dose: 150 mls/hr Oxytocin/Sodium Chloride (Oxytocin 30 Unit/500 Ml-Ns) 30 unit in 500 mls @ 500 mls/hr IV TITRATE [facility] Oxytocin/Sodium Chloride (Oxytocin 30 Unit/500 Ml-Ns) 30 unit in 500 mls @ 2 mls/hr IV TITRATE [facility]; Protocol Last Titration: 04/13/19 14:40 Dose: 3 munits/min, 3 mls/hr Tranexamic Acid 1,000 mg/ (Sodium Chloride) 110 mls @ 660 mls/hr IV ONETIME PRN PRN Reason: Bleeding Oxytocin/Sodium Chloride (Oxytocin 30 Unit/500 Ml-Ns) 30 unit in 500 mls @ 250 mls/hr IV TITRATE [facility] Lactated Ringer's (Ringers, Lactated) 1,000 mls @ 125 mls/hr IV ASDIRECTED [facility] Ibuprofen (Motrin) 800 mg PO Q8H PRN PRN Reason: mild pain or fever Methylergonovine Maleate (Methergine) 0.2 mg IM ASDIRECTED PRN PRN Reason: Post Hemorrhage Ondansetron HCl (Zofran) 4 mg IVPUSH Q6H PRN PRN Reason: Nausea/Vomiting Last Admin: 04/13/19 19:28 Dose: 4 mg Ondansetron HCl (Zofran) 4 mg IVPUSH Q4H PRN PRN Reason: Nausea/Vomiting Oxycodone/Acetaminophen (Percocet 325-5 Mg) 1 tab PO Q4H PRN PRN Reason: Pain (moderate 4-6) Oxycodone/Acetaminophen (Percocet 325-5 Mg) 2 tab PO Q4H PRN PRN Reason: Pain (moderate 4-6) Simethicone (Simethicone) 80 mg PO Q4H PRN PRN Reason: Gas Sodium Chloride (Saline Flush) 10 ml FLUSH ASDIRECTED PRN PRN Reason: Keep Vein Open Sodium Chloride (Saline Flush) 2.5 ml FLUSH ASDIRECTED PRN PRN Reason: Keep Vein Open Sodium Chloride (Normal Saline) 10 ml IV ASDIRECTED PRN PRN Reason: IV Use Sodium Chloride (Sodium Chloride 0.9%) 600 ml IRR ASDIRECTED PRN PRN Reason: amnioinfusion Sodium Chloride (Saline Flush) 10 ml FLUSH ASDIRECTED PRN PRN Reason: Keep Vein Open Sodium Chloride (Saline Flush) 2.5 ml FLUSH ASDIRECTED PRN PRN Reason: Keep Vein Open Sodium Chloride (Normal Saline) 10 ml IV ASDIRECTED PRN PRN Reason: IV Use Discontinued Medications Acetaminophen (Tylenol Extra Strength) 1,000 mg PO ONETIME ONE Stop: 04/13/19 19:39 Last Admin: 04/13/19 19:50 Dose: 1,000 mg Bupivacaine HCl (Sensorcaine-Mpf 0.5%) Confirm Administered Dose 20 ml .ROUTE .STK-MED ONE Stop: 04/14/19 00:02 Butorphanol Tartrate (Stadol) 1 mg IVPUSH Q1H PRN PRN Reason: Pain Last Admin: 04/13/19 06:27 Dose: 1 mg Cefazolin Sodium (Ancef) Confirm Administered Dose 2 gm .ROUTE .STK-MED ONE Stop: 04/14/19 00:16 Citric Acid/Sodium Citrate (Bicitra Solution) 30 ml PO ONETIME ONE Stop: 04/14/19 00:07 Diphenhydramine HCl (Benadryl) 25 mg IVPUSH Q4H PRN PRN Reason: Itching Stop: 04/15/19 01:41 Fentanyl (Sublimaze) Confirm Administered Dose 100 mcg .ROUTE .STK-MED ONE Stop: 04/13/19 09:43 Fentanyl (Sublimaze) Confirm Administered Dose 100 mcg .ROUTE .STK-MED ONE Stop: 04/14/19 00:26 Fentanyl/Bupivacaine HCl (Gslclwec-Mfmia-Py 2 Mcg/Ml-0.125%) Confirm Administered Dose 100 mls @ as directed .ROUTE .STK-MED ONE Stop: 04/13/19 09:43 Fentanyl/Bupivacaine HCl (Mtfrorpv-Mbahm-Eu 2 Mcg/Ml-0.125%) Confirm Administered Dose 100 mls @ as directed .ROUTE .STK-MED ONE Stop: 04/13/19 18:07 Cefazolin Sodium/Dextrose 2 gm (/ Premix) 50 mls @ 100 mls/hr IV ONETIME ONE Stop: 04/14/19 00:35 Sodium Chloride (Normal Saline) Confirm Administered Dose 20 mls @ as directed .ROUTE .STK-MED ONE Stop: 04/14/19 00:16 Ketorolac Tromethamine (Toradol) 30 mg IVPUSH Q6H [facility] Stop: 04/15/19 01:31 Last Admin: 04/15/19 01:26 Dose: 30 mg Lidocaine HCl (Xylocaine 1%) 50 ml INJECT ONETIME PRN PRN Reason: Laceration repair Midazolam HCl (Versed 1 Mg/Ml) Confirm Administered Dose 2 mg .ROUTE .STK-MED ONE Stop: 04/14/19 00:30 Misoprostol (Cytotec) 200 mcg PO ONETIME PRN PRN Reason: Post Hemorrhage Misoprostol (Cytotec) 25 mcg VAG ONETIME PRN PRN Reason: Cervical Ripening Last Admin: 04/12/19 23:15 Dose: 25 mcg Misoprostol (Cytotec) 25 mcg VAG Q4H PRN PRN Reason: Cervical Ripening Morphine Sulfate (Duramorph Pf) Confirm Administered Dose 10 mg .ROUTE .STK-MED ONE Stop: 04/14/19 00:38 Nalbuphine HCl (Nubain) 10 mg IVPUSH Q1H PRN PRN Reason: Pain (severe 7-10) Nalbuphine HCl (Nubain) 5 mg IVPUSH Q3H PRN PRN Reason: Pruritis Stop: 04/15/19 01:41 Naloxone HCl (Narcan) 0.1 mg IVPUSH ONETIME PRN PRN Reason: Respiratory Depression Stop: 04/15/19 01:41 Ondansetron HCl (Zofran) Confirm Administered Dose 4 mg .ROUTE .STK-MED ONE Stop: 04/14/19 00:16 Oxytocin (Pitocin) Confirm Administered Dose 30 unit .ROUTE .STK-MED ONE Stop: 04/14/19 00:15 Ropivacaine (Naropin 0.2%) Confirm Administered Dose 20 ml .ROUTE .STK-MED ONE Stop: 04/13/19 09:44 Sterile Water (Sterile Water For Irrigation) 1,000 ml IRR ASDIRECTED PRN PRN Reason: delivery Terbutaline Sulfate (Brethine) 0.25 mg SUBCUT ASDIRECTED PRN PRN Reason: Tacysystole - Interaction Infant Disposition, : [place] in Room with Family Interaction: Holding Infant Support Person: , Other (see below) - Recovery Exam Fundal Tone: Firm Fundal Level: 1 Fingerbreadths Below Umbilicus Fundal Placement: Midline Lochia Amount: Scant Lochia Color: Rubra/Red Perineum Description: Intact, Minimal Bruising/Swelling Episiotomy/Laceration: None Bladder Status: Indwelling Catheter in Place Urinary Elimination: Indwelling Catheter - Exam General: Alert, Oriented Lungs: Normal Respiratory Effort Cardiovascular: Regular Rate, Regular Rhythm GI/Abdominal Exam: Normal Bowel Sounds, Soft Extremities: Pedal Edema (1+). No: Bijal's Sign Skin: Warm, Dry, Intact Wound/Incisions: Healing Well, No Drainage. No: Erythema Neurological: No New Focal Deficit Psy/Mental Status: Alert, Normal Affect, Normal Mood - Problem List & Annotations (1) intolerance to labor, delivered, current hospitalization SNOMED Code(s): 264616586, [id number] Code(s): O77.9 - LABOR AND DELIVERY COMPLICATED BY STRESS, UNSPECIFIED Status: Acute Current Visit: Yes - Problem List Review Problem List Initiated/Reviewed/Updated: Yes - My Orders Last 24 Hours: My Active Orders 04/14/19 09:00 Docusate Sodium [Colace] 100 mg PO BID 04/15/19 07:00 Ibuprofen [Motrin] 800 mg PO Q8H PRN - Assessment Assessment:: POD 1 status post LTCS - Plan Plan:: Ambulate halls, may shower. Continue /postoperative cares. Anticipate discharge tomorrow.
[2019-04-15] MEDS: Ibuprofen 800 MG Tab PO PRN ×2 (13:36→23:36)
[2019-04-16] MEDS: Acetaminophen/oxyCODONE 325-5 MG Tab PO PRN ×3 (01:05→11:27)
--- NOTE | 2019-04-16 08:39 | PCM.PNPP ---
- General Info Date of Service: 04/16/19 Functional Status: Reports: Pain Controlled, Tolerating Diet, Ambulating, Urinating - Review of Systems General: Denies: Fever, Weakness Pulmonary: Denies: Shortness of Breath Cardiovascular: Denies: Chest Pain, Palpitations, Lightheadedness Gastrointestinal: Reports: Abdominal Pain (well controlled). Denies: Nausea, Vomiting 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: Denies: Flank Pain Musculoskeletal: Reports: No Symptoms Skin: Reports: No Symptoms Neurological: Reports: No Symptoms Psychiatric: Reports: No Symptoms - General Info Date of Service: 04/16/19 - Patient Data Vital Signs - Most Recent: Last Vital Signs Temp 36.6 C 04/16/19 04:00 Pulse 61 04/16/19 04:00 Resp 14 04/16/19 04:00 BP 108/67 04/16/19 04:00 Pulse Ox 97 04/16/19 04:00 Weight - Most Recent: 87.09 kg Med Orders - Current: Current Medications Al Hydroxide/Mg Hydroxide (Mag-Al Plus) 30 ml PO Q8H PRN PRN Reason: Heartburn Bisacodyl (Dulcolax) 10 mg RECTAL ONETIME PRN PRN Reason: Constipation Carboprost Tromethamine (Hemabate Ds) 250 mcg IM ASDIRECTED PRN PRN Reason: Post Hemorrhage Diphenhydramine HCl (Benadryl) 25 mg IVPUSH Q6H PRN PRN Reason: Itching or Nausea Docusate Sodium (Colace) 100 mg PO BID EVERETTE Last Admin: 04/15/19 20:33 Dose: 100 mg Emollient Ointment (Lansinoh Hpa) 0 gm TOP ASDIRECTED PRN PRN Reason: Sore Nipples Last Admin: 04/14/19 11:44 Dose: 1 tube Lactated Ringer's (Ringers, Lactated) 1,000 mls @ 150 mls/hr IV ASDIRECTED EVERETTE Last Infusion: 04/13/19 10:18 Dose: 150 mls/hr Oxytocin/Sodium Chloride (Oxytocin 30 Unit/500 Ml-Ns) 30 unit in 500 mls @ 500 mls/hr IV TITRATE EVERETTE Oxytocin/Sodium Chloride (Oxytocin 30 Unit/500 Ml-Ns) 30 unit in 500 mls @ 2 mls/hr IV TITRATE EVERETTE; Protocol Last Titration: 04/13/19 14:40 Dose: 3 munits/min, 3 mls/hr Tranexamic Acid 1,000 mg/ (Sodium Chloride) 110 mls @ 660 mls/hr IV ONETIME PRN PRN Reason: Bleeding Oxytocin/Sodium Chloride (Oxytocin 30 Unit/500 Ml-Ns) 30 unit in 500 mls @ 250 mls/hr IV TITRATE [place]ERETTE Lactated Ringer's (Ringers, Lactated) 1,000 mls @ 125 mls/hr IV ASDIRECTED [place]ETTE Ibuprofen (Motrin) 800 mg PO Q8H PRN PRN Reason: mild pain or fever Last Admin: 04/15/19 23:36 Dose: 800 mg Methylergonovine Maleate (Methergine) 0.2 mg IM ASDIRECTED PRN PRN Reason: Post Hemorrhage Ondansetron HCl (Zofran) 4 mg IVPUSH Q6H PRN PRN Reason: Nausea/Vomiting Last Admin: 04/13/19 19:28 Dose: 4 mg Ondansetron HCl (Zofran) 4 mg IVPUSH Q4H PRN PRN Reason: Nausea/Vomiting Oxycodone/Acetaminophen (Percocet 325-5 Mg) 1 tab PO Q4H PRN PRN Reason: Pain (moderate 4-6) Last Admin: 04/16/19 01:05 Dose: 1 tab Oxycodone/Acetaminophen (Percocet 325-5 Mg) 2 tab PO Q4H PRN PRN Reason: Pain (moderate 4-6) Last Admin: 04/16/19 07:15 Dose: 2 tab Simethicone (Simethicone) 80 mg PO Q4H PRN PRN Reason: Gas Sodium Chloride (Saline Flush) 10 ml FLUSH ASDIRECTED PRN PRN Reason: Keep Vein Open Sodium Chloride (Saline Flush) 2.5 ml FLUSH ASDIRECTED PRN PRN Reason: Keep Vein Open Sodium Chloride (Normal Saline) 10 ml IV ASDIRECTED PRN PRN Reason: IV Use Sodium Chloride (Sodium Chloride 0.9%) 600 ml IRR ASDIRECTED PRN PRN Reason: amnioinfusion Sodium Chloride (Saline Flush) 10 ml FLUSH ASDIRECTED PRN PRN Reason: Keep Vein Open Sodium Chloride (Saline Flush) 2.5 ml FLUSH ASDIRECTED PRN PRN Reason: Keep Vein Open Sodium Chloride (Normal Saline) 10 ml IV ASDIRECTED PRN PRN Reason: IV Use Discontinued Medications Acetaminophen (Tylenol Extra Strength) 1,000 mg PO ONETIME ONE Stop: 04/13/19 19:39 Last Admin: 04/13/19 19:50 Dose: 1,000 mg Bupivacaine HCl (Sensorcaine-Mpf 0.5%) Confirm Administered Dose 20 ml .ROUTE .STK-MED ONE Stop: 04/14/19 00:02 Last Admin: 04/15/19 22:02 Dose: Not Given Butorphanol Tartrate (Stadol) 1 mg IVPUSH Q1H PRN PRN Reason: Pain Last Admin: 04/13/19 06:27 Dose: 1 mg Cefazolin Sodium (Ancef) Confirm Administered Dose 2 gm .ROUTE .STK-MED ONE Stop: 04/14/19 00:16 Citric Acid/Sodium Citrate (Bicitra Solution) 30 ml PO ONETIME ONE Stop: 04/14/19 00:07 Last Admin: 04/15/19 22:02 Dose: Not Given Diphenhydramine HCl (Benadryl) 25 mg IVPUSH Q4H PRN PRN Reason: Itching Stop: 04/15/19 01:41 Fentanyl (Sublimaze) Confirm Administered Dose 100 mcg .ROUTE .STK-MED ONE Stop: 04/13/19 09:43 Fentanyl (Sublimaze) Confirm Administered Dose 100 mcg .ROUTE .STK-MED ONE Stop: 04/14/19 00:26 Fentanyl/Bupivacaine HCl ([place]-Kmkou-Xu 2 Mcg/Ml-0.125%) Confirm Administered Dose 100 mls @ as directed .ROUTE .STK-MED ONE Stop: 04/13/19 09:43 Fentanyl/Bupivacaine HCl (Pbprawic-Unwsm-Sp 2 Mcg/Ml-0.125%) Confirm Administered Dose 100 mls @ as directed .ROUTE .STK-MED ONE Stop: 04/13/19 18:07 Cefazolin Sodium/Dextrose 2 gm (/ Premix) 50 mls @ 100 mls/hr IV ONETIME ONE Stop: 04/14/19 00:35 Last Admin: 04/15/19 22:02 Dose: Not Given Sodium Chloride (Normal Saline) Confirm Administered Dose 20 mls @ as directed .ROUTE .STK-MED ONE Stop: 04/14/19 00:16 Ketorolac Tromethamine (Toradol) 30 mg IVPUSH Q6H EVERETTE Stop: 04/15/19 01:31 Last Admin: 04/15/19 01:26 Dose: 30 mg Lidocaine HCl (Xylocaine 1%) 50 ml INJECT ONETIME PRN PRN Reason: Laceration repair Midazolam HCl (Versed 1 Mg/Ml) Confirm Administered Dose 2 mg .ROUTE .STK-MED ONE Stop: 04/14/19 00:30 Misoprostol (Cytotec) 200 mcg PO ONETIME PRN PRN Reason: Post Hemorrhage Misoprostol (Cytotec) 25 mcg VAG ONETIME PRN PRN Reason: Cervical Ripening Last Admin: 04/12/19 23:15 Dose: 25 mcg Misoprostol (Cytotec) 25 mcg VAG Q4H PRN PRN Reason: Cervical Ripening Morphine Sulfate (Duramorph Pf) Confirm Administered Dose 10 mg .ROUTE .STK-MED ONE Stop: 04/14/19 00:38 Nalbuphine HCl (Nubain) 10 mg IVPUSH Q1H PRN PRN Reason: Pain (severe 7-10) Nalbuphine HCl (Nubain) 5 mg IVPUSH Q3H PRN PRN Reason: Pruritis Stop: 04/15/19 01:41 Naloxone HCl (Narcan) 0.1 mg IVPUSH ONETIME PRN PRN Reason: Respiratory Depression Stop: 04/15/19 01:41 Ondansetron HCl (Zofran) Confirm Administered Dose 4 mg .ROUTE .STK-MED ONE Stop: 04/14/19 00:16 Oxytocin (Pitocin) Confirm Administered Dose 30 unit .ROUTE .STK-MED ONE Stop: 04/14/19 00:15 Ropivacaine (Naropin 0.2%) Confirm Administered Dose 20 ml .ROUTE .STK-MED ONE Stop: 04/13/19 09:44 Sterile Water (Sterile Water For Irrigation) 1,000 ml IRR ASDIRECTED PRN PRN Reason: delivery Terbutaline Sulfate (Brethine) 0.25 mg SUBCUT ASDIRECTED PRN PRN Reason: Tacysystole - Interaction Infant Disposition, : in Room with Family Interaction: Holding Infant Support Person: , Other (see below) - Recovery Exam Fundal Tone: Firm Fundal Level: 1 Fingerbreadths Below Umbilicus Fundal Placement: Midline Lochia Amount: Scant Lochia Color: Rubra/Red Perineum Description: Intact, Minimal Bruising/Swelling Episiotomy/Laceration: None Bladder Status: Voiding Urinary Elimination: Voided - Exam General: Alert, Oriented Lungs: Normal Respiratory Effort Cardiovascular: Regular Rate, Regular Rhythm GI/Abdominal Exam: Normal Bowel Sounds, Soft Extremities: Pedal Edema (trace). No: Bijal's Sign Skin: Warm, Dry, Intact Wound/Incisions: Healing Well, No Drainage. No: Erythema Neurological: No New Focal Deficit Psy/Mental Status: Alert, Normal Affect, Normal Mood - Problem List & Annotations (1) intolerance to labor, delivered, current hospitalization SNOMED Code(s): 387575876, 950171772 Code(s): O77.9 - LABOR AND DELIVERY COMPLICATED BY STRESS, UNSPECIFIED Status: Acute Current Visit: Yes - Problem List Review Problem List Initiated/Reviewed/Updated: Yes - My Orders Last 24 Hours: My Active Orders 04/16/19 08:35 Ready for Discharge [RC] PER UNIT ROUTINE - Assessment Assessment:: POD 2 status post LTCS - Plan Plan:: Doing well overall--would like to go home. Discharge to home. Discharge instructions reviewed. Infection and bleeding warnings reviewed. Follow up at [facility] 2 and 6 weeks.
[2019-04-16] MEDS: Ibuprofen 800 MG Tab PO PRN (09:35)
[2019-04-16] MEDS: Docusate Sodium 100 MG Cap PO SCH (09:35)
[2019-04-16 12:14] VITALS: BP 123/76
== END 2019-04-16 11:31 | disposition home or self-care (01) | DRG 788 ==
LOC: MW.OB 22:00 → OBSVTOIN 04-14 01:08 → MW.OB 04-14 06:35
PROVIDERS: ADMIT Obstetrics & Gynecology; ATTEND Obstetrics & Gynecology
PROC: 10D00Z1 Extraction of Products of Conception, Low, Open Approach (ICD-10-PCS; principal; 2019-04-14)
PROC: 10H07YZ Insertion of Other Device into Products of Conception, Via Natural or Artificial Opening (ICD-10-PCS; 2019-04-14)
DX: O48.0 Post-term pregnancy (principal); O76 Abnormality in fetal heart rate and rhythm complicating labor and delivery; Z3A.40 40 weeks gestation of pregnancy; Z37.0 Single live birth; Z87.891 Personal history of nicotine dependence
CPT/HCPCS: 36415; 51702; 59025; 82803; 85014; 85018; 85027; 86850; 86900; 86901; 88307; A9270-GY; J0595; J0690; J1885; J2250; J2270; J2405; J2590; J3010; J7120

== ENCOUNTER 2021-02-02 11:23 | Emergency (ER) | payer BC ==
--- NOTE | 2021-02-02 11:31 | EDM.PDOC ---
ED HPI GENERAL MEDICAL PROBLEM - General Chief Complaint: ENT Problem Stated Complaint: TOOTH PAIN Time Seen by Provider: 02/02/21 11:24 Source of Information: Reports: Patient History Limitations: Reports: No Limitations - History of Present Illness INITIAL COMMENTS - FREE TEXT/NARRATIVE: HISTORY AND PHYSICAL: History of present illness: Patient is a 25-year-old female who presents to the emergency room with complaints of left upper posterior molar dental pain x1 week. She states she did previously have a cap on the affected tooth but feels that the Has broken or fallen off. Increased pain that is not alleviated with [id number] remedies. She does have an appointment with her dentist on Friday. Patient denies any fever, chills, headache, sore throat, difficulty swallowing, change in vision, syncope or near syncope. Denies any chest pain, back pain, shortness of breath or cough. Denies any GI or symptoms. No concern for . Patient has been eating and drinking appropriately. Review of systems: As per history of present illness and below otherwise all systems reviewed and negative. Past medical history: As per history of present illness and as reviewed below otherwise noncontributory. Surgical history: As per history of present illness and as reviewed below otherwise noncontributory. Social history: See social history for further information Family history: As per history of present illness and as reviewed below otherwise noncontributory. Physical exam: General: Well developed and well nourished 25 year old female. Alert and o rientated x 3. Nontoxic in appearance and in no acute distress. Vital signs are stable and have been reviewed by me. Nursing notes were reviewed. HEENT: Atraumatic, normocephalic, pupils equal and reactive bilaterally, negative for conjunctival pallor or scleral icterus, mucous membranes moist, redness and tenderness along the left upper posterior molar/gumline. TMs normal bilaterally, throat clear, neck supple, nontender, trachea midline. No drooling or trismus noted. No meningeal signs. No hot potato voice noted. Lungs: Clear to auscultation bilaterally. No wheezes, rales, or rhonchi. Normal work of breathing, no accessory muscles used. Heart: S1S2, regular rate and rhythm without overt murmur, gallops, or rubs. No JVD. No peripheral edema Skin: Intact, warm, dry. No lesions or rashes noted. Hematologic: No petechiae or purpra. Mucosa appropriate color and normal nail bed color and refill. Extremities: Atraumatic, moves all extremities per self without difficulty or deficits, negative for cords or calf pain. Neurovascular unremarkable. Neuro: Awake, alert, oriented. Cranial nerves II through XII unremarkable. Cerebellum unremarkable. Motor and sensory unremarkable throughout. Exam nonfocal. Psychiatric: Mood and affect are appropriate. Normal thought process. Answering questions appropriately. Notes: *This patient was seen and evaluated during the 2019 SARS-CoV-2 novel c oronavirus pandemic period. Community viral transmission is ongoing at time of this encounter and the emergency department is operating under pandemic response procedures. I have talked with the patient about today's findings, in addition to providing specific details for plan of care. Reassessment at the time of disposition demonstrates that the patient is in no acute distress. The patient is stable for discharge, counseling was provided and we discussed in great detail signs and symptoms that would prompt them to return to the Emergency Department. Medication, follow up and supportive care measures were reviewed and discussed. Voices understanding and is agreeable to plan of care. Denies any further questions or concerns at this time. Diagnostics: None Therapeutics: Dental Balls Prescription: [place], Augmentin Impression: Dental abscess Plan: 1. Please take the antibiotic as prescribed. 2. Tylenol and/or ibuprofen as needed for pain management. "Tooth Balls" have been given to you; apply along the gumline every 2-3 hours as needed. Do not swallow these; external use only. 3. Follow-up with a dentist for definitive care. Return to the ED as needed and as discussed. Definitive disposition and diagnosis as appropriate pending reevaluation and review of above. - Related Data Allergies Allergy/AdvReac Type Severity Reaction Status Date / Time No Known Allergies Allergy Verified 04/12/19 22:29 Home Meds: Home Meds Control Pill 1 tab PO DAILY 05/02/15 [History] Omeprazole 20 mg PO DAILY 03/18/17 [History] Spironolactone [Aldactone] 12.5 mg PO DAILY 03/18/17 [History] Past Medical History - Past Health History Medical/Surgical History: Denies Medical/Surgical History HEENT History: Reports: None Cardiovascular History: Reports: None Respiratory History: Reports: None Gastrointestinal History: Reports: None 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 History: Reports: Other (See Below) Other 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 History: PCOS 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 Musculoskeletal History: Reports: None Neurological History: Reports: None Psychiatric History: Reports: None Endocrine/Metabolic History: Reports: None Hematologic History: Reports: None Immunologic History: Reports: None Oncologic (Cancer) History: Reports: None Dermatologic History: Reports: None - Infectious Disease History Infectious Disease History: Reports: None - Past Surgical History Head Surgeries/Procedures: Reports: None HEENT Surgical History: Reports: None Cardiovascular Surgical History: Reports: None Respiratory Surgical History: Reports: None GI Surgical History: Reports: None Musculoskeletal Surgical History: Reports: None Dermatological Surgical History: Reports: None Social & Family History - Family History Family Medical History: No Pertinent Family History - Caffeine Use Caffeine Use: Reports: Coffee ED ROS ENT - Review of Systems Review Of Systems: Comprehensive ROS is negative, except as noted in HPI. ED EXAM, ENT - Physical Exam Exam: See Below (See dictation) Course - Orders/Labs/Meds Meds: Medications Discontinued Medications Generic Name Dose Route Start Last Admin Trade Name Ele PRN Reason Stop Dose Admin Benzocaine 2 each 02/02/21 11:32 Benzocaine 20% Topical [place] Ud MUCMEM 02/02/21 11:33 ONETIME ONE Lidocaine HCl 15 ml 02/02/21 11:32 Lidocaine 2% Viscous Solution 15 Ml Cup PO 02/02/21 11:33 ONETIME ONE Departure - Departure Time of Disposition: 11:52 Disposition: Home, Self-Care 01 Clinical Impression: Dental abscess - Discharge Information Instructions: Dental Abscess, [id number] Referrals: Marcella Landa NP [Primary Care Provider] - Forms: ED Department Discharge Additional Instructions: The following information is given to patients seen in the emergency department who are being discharged to home. This information is to outline your options for follow-up care. We provide all patients seen in our emergency department with a follow-up referral. The need for follow-up, as well as the timing and circumstances, are variable depending upon the specifics of your emergency department visit. If you don't have a primary care physician on staff, we will provide you with a referral. We always advise you to contact your personal physician following an emergency department visit to inform them of the circumstance of the visit and for follow-up with them and/or the need for any referrals to a consulting specialist. The emergency department will also refer you to a specialist when appropriate. This referral assures that you have the opportunity for follow-up care with a specialist. All of these measure are taken in an effort to provide you with optimal care, which includes your follow-up. Under all circumstances we always encourage you to contact your private physician who remains a resource for coordinating your care. When calling for follow-up care, please make the office aware that this follow-up is from your recent emergency room visit. If for any reason you are refused follow-up, please contact the [facility] Emergency Department at and asked to speak to the emergency department charge nurse. [facility] [address] [place] [id number] [place] [address] Thank you for choosing the [facility] emergency department in [place] for your medical needs today. It was a pleasure caring for you. Today you were seen in the emergency department for dental pain. 1. Please take the antibiotic as prescribed. 2. Tylenol and/or ibuprofen as needed for pain management. "Tooth Balls" have been given to you; apply along the gumline every 2-3 hours as needed. Do not swallow these; external use only. 3. Follow-up with a dentist for definitive care. Return to the ED as needed and as discussed.
[2021-02-02] MEDS ORDERED: Benzocaine 20% Topical Spray UD MUCMEM ONE (11:32)
[2021-02-02] MEDS ORDERED: Lidocaine 2% Viscous Solution 15 ML Cup PO ONE (11:32)
[2021-02-02 12:06] VITALS: BP 112/73; PULSE 84
== END 2021-02-02 12:05 | disposition home or self-care (01) ==
LOC: MW.ED 11:23
DX: K04.7 Periapical abscess without sinus (principal)
CPT/HCPCS: 99282; A9270; 99283

== ENCOUNTER 2021-03-06 12:57 | Day surgery (SDC) | payer BC ==
[~2021-03-06 12:57] MED LIST: Lactated Ringers 1,000 ML IV SCH; Midazolam 1 MG/ML 2 ML SDV ONE; Ondansetron 4 MG/2 ML SDV ONE; Propofol 200 MG/20 ML SDV ONE; Sodium Chloride 0.9% 10 ML SDV IV PRN; Sodium Chloride 0.9% 10 ML Syringe FLUSH PRN; Sodium Chloride 0.9% 2.5 ML Syringe FLUSH PRN; fentaNYL 100 MCG/2 ML SDV ONE
--- NOTE | 2021-03-06 13:42 | PCM.PREANE ---
Preanesthetic Assessment - Anesthesia/Transfusion/Family Hx Anesthesia History: Prior Anesthesia Without Reaction Family History of Anesthesia Reaction: No Transfusion History: No Prior Transfusion(s) - Review of Systems General: No Symptoms Pulmonary: No Symptoms Cardiovascular: No Symptoms Gastrointestinal: No Symptoms Neurological: No Symptoms Other: Reports: None - Physical Assessment NPO Status Date: 03/06/21 NPO Status Time: 00:01 Vital Signs: Last Vital Signs Temp 97.0 F 03/06/21 13:21 Pulse 89 03/06/21 13:21 Resp 16 03/06/21 13:21 BP 102/74 03/06/21 13:21 Pulse Ox 97 03/06/21 13:21 Height: 5 ft 4 in Weight: 143 lb ASA Class: 2 Mental Status: Alert & Oriented x3 Airway Class: Mallampati = 2 Dentition: Reports: Normal Dentition ROM/Head Extension: Full Lungs: Clear to Auscultation, Normal Respiratory Effort Cardiovascular: Regular Rate, Regular Rhythm - Lab Values: Laboratory Last Values Urine HCG, Qual NEGATIVE (NEGATIVE) 03/06/21 13:12 - Allergies Allergies/Adverse Reactions: Allergies Allergy/AdvReac Type Severity Reaction Status Date / Time No Known Allergies Allergy Verified 03/06/21 13:23 - Anesthesia Plan Pre-Op Medication Ordered: None - Acknowledgements Anesthesia Type Planned: General Anesthesia Pt an Appropriate Candidate for the Planned Anesthesia: Yes Alternatives and Risks of Anesthesia Discussed w Pt/Guardian: Yes Pt/Guardian Understands and Agrees with Anesthesia Plan: Yes Additional Comments: npo ibs dpression tob quit 2013 etoh rare par no questions bmi 25 PreAnesthesia Questionnaire - Past Health History Medical/Surgical History: Denies Medical/Surgical History HEENT History: Reports: Other (See Below) Other HEENT History: wears glasses Cardiovascular History: Reports: None Respiratory History: Reports: None Gastrointestinal History: Reports: Chronic Constipation, Chronic Diarrhea, Irritable Bowel Syndrome, Other (See Below) Other Gastrointestinal History: hx of abdominal pain 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 History: Reports: Other (See Below) Other 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 History: 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, Musculoskeletal History: Reports: Fracture Other Musculoskeletal History: hx of fx right wrist Neurological History: Reports: Vertigo Psychiatric History: Reports: Depression Endocrine/Metabolic History: Reports: None Hematologic History: Reports: None Immunologic History: Reports: None Oncologic (Cancer) History: Reports: None Dermatologic History: Reports: None - Infectious Disease History Infectious Disease History: Reports: None - Past Surgical History Head Surgeries/Procedures: Reports: None HEENT Surgical History: Reports: None Cardiovascular Surgical History: Reports: None Respiratory Surgical History: Reports: None GI Surgical History: Reports: None Female Surgical History: Reports: Section Musculoskeletal Surgical History: Reports: None Dermatological Surgical History: Reports: None - SUBSTANCE USE Tobacco Use Status *Q: Former Tobacco User Tobacco Use Within Last Twelve Months: No Recreational Drug Use History: No - HOME MEDS Home Medications: Home Meds Citalopram [Citalopram HBr] 40 mg PO DAILY 02/02/21 [History] metFORMIN [Glucophage XR] 500 mg PO DAILY 02/02/21 [History] Dicyclomine [Bentyl] 10 mg PO ASDIRECTED PRN 02/28/21 [History] Omeprazole 20 mg PO DAILY 02/28/21 [History] - CURRENT (IN HOUSE) MEDS Current Meds: Current Medications Lactated Ringer's (Ringers, Lactated) 1,000 mls @ 125 mls/hr IV ASDIRECTED EVERETTE Last Admin: 03/06/21 13:21 Dose: 125 mls/hr Documented by: Sodium Chloride (Sodium Chloride 0.9% 10 Ml Syringe) 10 ml FLUSH ASDIRECTED PRN PRN Reason: Keep Vein Open Sodium Chloride (Sodium Chloride 0.9% 2.5 Ml Syringe) 2.5 ml FLUSH ASDIRECTED PRN PRN Reason: Keep Vein Open Sodium Chloride (Sodium Chloride 0.9% 10 Ml Syringe) 10 ml FLUSH ASDIRECTED PRN PRN Reason: Keep Vein Open Sodium Chloride (Sodium Chloride 0.9% 2.5 Ml Syringe) 2.5 ml FLUSH ASDIRECTED PRN PRN Reason: Keep Vein Open Sodium Chloride (Sodium Chloride 0.9% 10 Ml Sdv) 10 ml IV ASDIRECTED PRN PRN Reason: IV Use Discontinued Medications Fentanyl (Fentanyl 100 Mcg/2 Ml Sdv) Confirm Administered Dose 100 mcg .ROUTE .STK-MED ONE Stop: 03/06/21 12:58 Midazolam HCl (Midazolam 1 Mg/Ml 2 Ml Sdv) Confirm Administered Dose 2 mg .ROUTE .STK-MED ONE Stop: 03/06/21 12:58 Ondansetron HCl (Ondansetron 4 Mg/2 Ml Sdv) Confirm Administered Dose 4 mg .ROUTE .STK-MED ONE Stop: 03/06/21 12:58 Propofol (Propofol 200 Mg/20 Ml Sdv) Confirm Administered Dose 200 mg .ROUTE .STK-MED ONE Stop: 03/06/21 12:58
--- NOTE | 2021-03-06 15:19 | PCM.OPNOTE ---
- General Post-Op/Procedure Note Date of Surgery/Procedure: 03/06/21 Operative Procedure(s): Diagnostic colonoscopy with biopsy Findings: Normal appearing colon Pre Op Diagnosis: Alternating bowel habits Post-Op Diagnosis: Irritable bowel syndrome Anesthesia Technique: KATINA Primary Surgeon: Ldiya Grider Condition: Good
--- NOTE | 2021-03-06 15:39 | PCM.POSTAN ---
POST ANESTHESIA ASSESSMENT - MENTAL STATUS Mental Status: Alert - VITAL SIGNS Vital Signs: Last Vital Signs Temp 36.1 C 03/06/21 13:21 Pulse 60 03/06/21 15:27 Resp 13 03/06/21 15:27 BP 94/52 L 03/06/21 15:27 Pulse Ox 98 03/06/21 15:27 - RESPIRATORY Respiratory Status: Respiratory Rate WNL - CARDIOVASCULAR CV Status: Pulse Rate WNL - GASTROINTESTINAL GI Status: No Symptoms - POST OP HYDRATION Hydration Status: Adequate & Stable
--- NOTE | 2021-03-06 15:44 | PCM48HPAN ---
Post Anesthesia Note - EVALUATION WITHIN 48HRS OF ANESTHETIC Vital Signs in Normal Range: Yes Patient Participated in Evaluation: Yes Respiratory Function Stable: Yes Airway Patent: Yes Cardiovascular Function Stable: Yes Hydration Status Stable: Yes Pain Control Satisfactory: Yes Nausea and Vomiting Control Satisfactory: Yes Mental Status Recovered: Yes Vital Signs: Last Vital Signs Temp 36.1 C 03/06/21 13:21 Pulse 60 03/06/21 15:27 Resp 13 03/06/21 15:27 BP 94/52 L 03/06/21 15:27 Pulse Ox 98 03/06/21 15:27
[2021-03-06 15:54] VITALS: BP 98/51; PULSE 52
--- NOTE | 2021-03-06 22:28 | OR ---
SURGEON: LIDYA GRIDER MD DATE OF PROCEDURE: 03/06/2021 PREOPERATIVE DIAGNOSIS: Alternating bowel habits. POSTOPERATIVE DIAGNOSIS: Irritable bowel syndrome. PROCEDURES PERFORMED: Diagnostic colonoscopy with biopsies. PRIMARY SURGEON: Lidya Grider MD ANESTHESIA: MAC. INSTRUMENT USED: Olympus colonoscope. EXTENT OF THE EXAMINATION: To the cecum. PREPARATION: Good. LIMITATIONS: None. INDICATIONS FOR EXAMINATION: The patient is a 25-year-old female, who presents with alternating bowel habits. She has tried multiple therapies with no relief. It was recommended that she undergo a diagnostic colonoscopy by her borematic operator. The patient and I discussed this procedure, the expected perioperative course, and the risks. She verbalized understanding and wishes to proceed. PROCEDURE IN DETAIL: The patient was brought in the endoscopy suite and placed in the left lateral decubitus position. A time-out was completed, verifying the patient's name, age, date of , allergies, and procedure to be performed. Monitored anesthesia care was induced, and continuous oxygen was provided via nasal cannula throughout the procedure. After adequate sedation was achieved, a digital rectal exam was performed. This exam was within normal limits. A well- lubricated colonoscope was inserted in the rectum and advanced under direct visualization to the level of the cecum. The cecum was identified by both visual and anatomic landmarks. A photograph was taken of the cecal cap as well as with the scope retroflexed within the cecum. The scope was then straightened out and fully withdrawn while examining the color, texture, anatomy, and integrity of the mucosa from the cecum to the anal canal. The findings were consistent with normal colonic mucosa. I was able to intubate the terminal ileum, and this appeared normal as well. Random biopsies were taken of the cecum, ascending colon, transverse colon, descending colon, sigmoid colon, and rectum and sent to Pathology for histologic review. The scope was retroflexed within the rectum to allow visualization of the anal canal opening. This appeared normal, and a photograph was taken. The scope was then straightened out and fully withdrawn. The [id number] time was 6 minutes. The patient tolerated the procedure well and was transferred to the PACU in stable condition. ENDOSCOPIC DIAGNOSIS: Irritable bowel syndrome. RECOMMENDATION: Follow up in clinic in 2 weeks. QUETA / XIAO /[id number]
== END 2021-03-06 15:58 | disposition home or self-care (01) ==
LOC: MW.SDS 12:57
PROVIDERS: ATTEND Surgery
DX: K58.2 Mixed irritable bowel syndrome (principal); K82.4 Cholesterolosis of gallbladder; Z87.891 Personal history of nicotine dependence; Z79.899 Other long term (current) drug therapy
CPT/HCPCS: 45380; 81025; 88304; 88305; J2250; J2405; J2704; J3010; J7120; 00811

== ENCOUNTER 2021-05-28 08:48 | Day surgery (SDC) | payer BC ==
[~2021-05-28 08:48] MED LIST changes: +Albuterol 0.083% 2.5 MG/3 ML Neb Soln NEB PRN; +Glycopyrrolate 0.2 MG/ML SDV ONE; +HYDROmorphone 2 MG/ML Syringe IVPUSH PRN; +Ketorolac 30 MG/ML SDV ONE; +Lidocaine 2% 5 ML SDV ONE; +Metoclopramide 10 MG/2 ML SDV IVPUSH PRN; +Morphine 2 MG/ML SYRINGE IVPUSH PRN; +Naloxone 0.4 MG/ML Syringe IVPUSH PRN; +Ondansetron 4 MG/2 ML SDV IVPUSH PRN; -Sodium Chloride 0.9% 10 ML SDV IV PRN; -Sodium Chloride 0.9% 10 ML Syringe FLUSH PRN; -Sodium Chloride 0.9% 2.5 ML Syringe FLUSH PRN; +fentaNYL 100 MCG/2 ML SDV IVPUSH PRN
[2021-05-28] MEDS ORDERED: Sodium Chloride 0.9% 10 ML SDV IV PRN (08:53)
[2021-05-28] MEDS ORDERED: Sodium Chloride 0.9% 10 ML Syringe FLUSH PRN (08:53)
[2021-05-28] MEDS ORDERED: Sodium Chloride 0.9% 2.5 ML Syringe FLUSH PRN (08:53)
[2021-05-28] MEDS ORDERED: Scopolamine 1.5 MG Transdermal Patch ONE (09:32)
--- NOTE | 2021-05-28 11:15 | PCM.PREANE ---
Preanesthetic Assessment - Anesthesia/Transfusion/Family Hx Anesthesia History: Prior Anesthesia Without Reaction Transfusion History: No Prior Transfusion(s) - Review of Systems General: No Symptoms Pulmonary: No Symptoms Cardiovascular: No Symptoms Gastrointestinal: No Symptoms Neurological: No Symptoms Other: Reports: None - Physical Assessment NPO Status Date: 05/28/21 NPO Status Time: 00:00 Height: 5 ft 4 in Weight: 137 lb ASA Class: 2 Mental Status: Alert & Oriented x3 Airway Class: Mallampati = 2 Dentition: Reports: Normal Dentition Thyro-Mental Finger Breadths: 4 Mouth Opening Finger Breadths: 4 ROM/Head Extension: Full Lungs: Clear to Auscultation, Normal Respiratory Effort Cardiovascular: Regular Rate, Regular Rhythm - Lab Values: Laboratory Last Values WBC 6.38 K/uL (4.0-11.0) 05/28/21 09:22 RBC 4.30 M/uL (4.30-5.90) 05/28/21 09:22 Hgb 13.4 g/dL (12.0-16.0) 05/28/21 09:22 Hct 37.9 % (36.0-46.0) 05/28/21 09:22 MCV 88.1 fL (80.0-98.0) 05/28/21 09:22 MCH 31.2 pg (27.0-32.0) 05/28/21 09:22 MCHC 35.4 g/dL (31.0-37.0) 05/28/21 09:22 RDW Std Deviation 40.4 fl (28.0-62.0) 05/28/21 09:22 RDW Coeff of Akash 13 % (11.0-15.0) 05/28/21 09:22 Plt Count 215 K/uL (150-400) 05/28/21 09:22 MPV 10.70 fL (7.40-12.00) 05/28/21 09:22 Nucleated RBC % 0.0 /100WBC 05/28/21 09:22 Nucleated RBCs # 0 K/uL 05/28/21 09:22 SARS-CoV-2 RNA (MILLA) NEGATIVE (NEGATIVE) 05/28/21 08:52 - Allergies Allergies/Adverse Reactions: Allergies Allergy/AdvReac Type Severity Reaction Status Date / Time No Known Allergies Allergy Verified 05/28/21 07:27 - Blood Blood Available: No - Anesthesia Plan Pre-Op Medication Ordered: Other (scopolamine patch) - Acknowledgements Anesthesia Type Planned: General Anesthesia Pt an Appropriate Candidate for the Planned Anesthesia: Yes Alternatives and Risks of Anesthesia Discussed w Pt/Guardian: Yes Pt/Guardian Understands and Agrees with Anesthesia Plan: Yes PreAnesthesia Questionnaire - Past Health History Medical/Surgical History: Denies Medical/Surgical History HEENT History: Reports: Other (See Below) Other HEENT History: wears glasses Cardiovascular History: Reports: None Respiratory History: Reports: None Gastrointestinal History: Reports: Irritable Bowel Syndrome 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 History: Reports: None ZIGZAG TOPSTITCHER History: Reports: Polycystic Ovaries, Musculoskeletal History: Reports: Fracture Other Musculoskeletal History: hx of fx right wrist Neurological History: Reports: None, Vertigo Psychiatric History: Reports: Depression Endocrine/Metabolic History: Reports: None Hematologic History: Reports: None Immunologic History: Reports: None Oncologic (Cancer) History: Reports: None Dermatologic History: Reports: None - Infectious Disease History Infectious Disease History: Reports: None - Past Surgical History Head Surgeries/Procedures: Reports: None HEENT Surgical History: Reports: None Cardiovascular Surgical History: Reports: None Respiratory Surgical History: Reports: None GI Surgical History: Reports: Colonoscopy Female Surgical History: Reports: Section Endocrine Surgical History: Reports: None Neurological Surgical History: Reports: None Musculoskeletal Surgical History: Reports: None Oncologic Surgical History: Reports: None Dermatological Surgical History: Reports: None - SUBSTANCE USE Tobacco Use Status *Q: Former Tobacco User Tobacco Use Within Last Twelve Months: No, Cigarettes - HOME MEDS Home Medications: Home Meds . [No Known Home Meds] 05/28/21 [History] - CURRENT (IN HOUSE) MEDS Current Meds: Current Medications Albuterol (Albuterol 0.083% 2.5 Mg/3 Ml Neb Soln) 2.5 mg NEB ONETIME PRN PRN Reason: Wheezing Droperidol (Droperidol 5 Mg/2 Ml Sdv) 0.625 mg IVPUSH ONETIME PRN PRN Reason: Nausea/Vomiting Fentanyl (Fentanyl 100 Mcg/2 Ml Sdv) 50 mcg IVPUSH Q5M PRN PRN Reason: Pain (mild 1-3) Hydromorphone HCl (Hydromorphone 2 Mg/Ml Syringe) 1 mg IVPUSH Q10M PRN PRN Reason: Pain (moderate 4-6) Lactated Ringer's (Ringers, Lactated) 1,000 mls @ 125 mls/hr IV ASDIRECTED [place] Metoclopramide HCl (Metoclopramide 10 Mg/2 Ml Sdv) 10 mg IVPUSH ONETIME PRN PRN Reason: Nausea/Vomiting Morphine Sulfate (Morphine 2 Mg/Ml Syringe) 2 mg IVPUSH Q10M PRN PRN Reason: Pain (severe 7-10) Naloxone HCl (Naloxone 0.4 Mg/Ml Syringe) 0.1 mg IVPUSH ASDIRECTED PRN PRN Reason: Respiratory Depression Ondansetron HCl (Ondansetron 4 Mg/2 Ml Sdv) 4 mg IVPUSH ONETIME PRN PRN Reason: Nausea/Vomiting Sodium Chloride (Sodium Chloride 0.9% 10 Ml Syringe) 10 ml FLUSH ASDIRECTED PRN PRN Reason: Keep Vein Open Sodium Chloride (Sodium Chloride 0.9% 2.5 Ml Syringe) 2.5 ml FLUSH ASDIRECTED PRN PRN Reason: Keep Vein Open Sodium Chloride (Sodium Chloride 0.9% 10 Ml Sdv) 10 ml IV ASDIRECTED PRN PRN Reason: IV Use Discontinued Medications Fentanyl (Fentanyl 100 Mcg/2 Ml Sdv) Confirm Administered Dose 100 mcg .ROUTE .STK-MED ONE Stop: 05/28/21 07:19 Glycopyrrolate (Glycopyrrolate 0.2 Mg/Ml Sdv) Confirm Administered Dose 0.2 mg .ROUTE .STK-MED ONE Stop: 05/28/21 07:19 Ketorolac Tromethamine (Ketorolac 30 Mg/Ml Sdv) Confirm Administered Dose 30 mg .ROUTE .STK-MED ONE Stop: 05/28/21 07:19 Lidocaine (Lidocaine 2% 5 Ml Sdv) Confirm Administered Dose 5 ml .ROUTE .STK-MED ONE Stop: 05/28/21 07:19 Midazolam HCl (Midazolam 1 Mg/Ml 2 Ml Sdv) Confirm Administered Dose 2 mg .ROUTE .STK-MED ONE Stop: 05/28/21 07:19 Ondansetron HCl (Ondansetron 4 Mg/2 Ml Sdv) Confirm Administered Dose 4 mg .ROUTE .STK-MED ONE Stop: 05/28/21 07:19 Propofol (Propofol 200 Mg/20 Ml Sdv) Confirm Administered Dose 200 mg .ROUTE .STK-MED ONE Stop: 05/28/21 07:19 Scopolamine (Scopolamine 1.5 Mg Transdermal Patch) Confirm Administered Dose 1.5 mg .ROUTE .STK-MED ONE Stop: 05/28/21 09:33
[2021-05-28] MEDS ORDERED: ePHEDrine 50 MG/ML SDV ONE (11:24)
[2021-05-28] MEDS ORDERED: Ondansetron 4 MG/2 ML SDV ONE (11:47)
--- NOTE | 2021-05-28 11:48 | PCM.OPNOTE ---
- General Post-Op/Procedure Note Date of Surgery/Procedure: 05/28/21 Operative Procedure(s): Suction D&C Findings: Products of conception Pre Op Diagnosis: 9 week demise/missed Post-Op Diagnosis: Same Anesthesia Technique: General LMA Primary Surgeon: Maggi Hernandez Fluid Replacement, Intraop: 1,400 EBL in mLs: 100 Complications: none known Condition: Stable Free Text/Narrative:: Dictation [id number]
--- NOTE | 2021-05-28 12:15 | PCM.POSTAN ---
POST ANESTHESIA ASSESSMENT - MENTAL STATUS Mental Status: Alert, Oriented - VITAL SIGNS Vital Signs: Last Vital Signs Temp 97.7 F 05/28/21 11:50 Pulse 79 05/28/21 12:05 Resp 10 L 05/28/21 12:05 BP 113/66 05/28/21 12:05 Pulse Ox 100 05/28/21 12:05 - RESPIRATORY Respiratory Status: Respiratory Rate WNL, Airway Patent, O2 Saturation Stable - CARDIOVASCULAR CV Status: Pulse Rate WNL, Blood Pressure Stable - GASTROINTESTINAL GI Status: No Symptoms - POST OP HYDRATION Hydration Status: Adequate & Stable
--- NOTE | 2021-05-28 12:16 | PCM48HPAN ---
Post Anesthesia Note - EVALUATION WITHIN 48HRS OF ANESTHETIC Vital Signs in Normal Range: Yes Patient Participated in Evaluation: Yes Respiratory Function Stable: Yes Airway Patent: Yes Cardiovascular Function Stable: Yes Hydration Status Stable: Yes Pain Control Satisfactory: Yes Nausea and Vomiting Control Satisfactory: Yes Mental Status Recovered: Yes Vital Signs: Last Vital Signs Temp 97.7 F 05/28/21 11:50 Pulse 79 05/28/21 12:05 Resp 10 L 05/28/21 12:05 BP 113/66 05/28/21 12:05 Pulse Ox 100 05/28/21 12:05
[2021-05-28] MEDS ORDERED: Acetaminophen 1,000 MG in Premix Bag 1 BAG IV ONE (12:27)
[2021-05-28 15:02] VITALS: BP 96/50; PULSE 58
--- NOTE | 2021-05-28 15:12 | OR ---
SURGEON: Maggi Hernandez M.D. DATE OF PROCEDURE: 05/28/2021 PREOPERATIVE DIAGNOSIS: 9-week demise and missed . POSTOPERATIVE DIAGNOSIS: 9-week demise and missed . PROCEDURE: Suction, dilation and curettage. PRIMARY SURGEON: Maggi Hernandez M.D. ANESTHESIA: General LMA. ESTIMATED BLOOD LOSS: 100 mL. FLUIDS: 1400 mL of crystalloid. COMPLICATIONS: None known. FINDINGS: Products of conception. DISPOSITION: The patient to PACU, stable. PROCEDURE DETAILS: Lissa is a 26-year-old G2, P1, at approximately 9 weeks gestational age who presented to clinic today for followup sonogram after having an abnormal 7-week ultrasound revealing bilateral pleural effusions. On this ultrasound, there was no cardiac activity visualized with a 9-week fetus. Given interval changes, the patient understands that this is evident of a demise and after discussing options, she would like to proceed with surgical intervention. Proper consent was obtained for suction, dilation and curettage. The patient was taken to the operating room where she underwent general LMA, was placed in modified dorsal lithotomy position, and was prepped and draped in usual sterile fashion. SCDs to the lower extremities. The bladder was drained. Time-out was performed. Speculum was introduced into the vagina. Anterior lip of the cervix grasped with Allis clamp. Cervix was gently dilated to 10 mm. Then, using a 10 mm curved curette, this was introduced after testing the suction apparatus. Once the curved curette was at the fundus, the suction was initiated and the uterine cavity was emptied of products of conception. Once adequately felt to be evacuated, gentle sharp curettage was performed which again was felt to confirm satisfactory evacuation of the uterine cavity. Hemostasis appeared evident. Specimen will go to Pathology. All instruments were removed from the vagina. Sponge and instrument count was correct. The patient will go to PACU in stable condition, specimens to Pathology. MICHELE / XIAO /[id number]
== END 2021-05-28 14:23 | disposition home or self-care (01) ==
LOC: MW.SDS 08:48
PROVIDERS: ATTEND Obstetrics & Gynecology
DX: O02.1 Missed abortion (principal); Z01.812 Encounter for preprocedural laboratory examination; Z20.822 Contact with and (suspected) exposure to COVID-19; Z87.891 Personal history of nicotine dependence; J90 Pleural effusion, not elsewhere classified
CPT/HCPCS: 01965; 36415; 85027; 88305; A9270-GY; J0131; J1885; J2250; J2405; J2704; J3010; J3490; J7120; U0002

== ENCOUNTER 2021-12-03 07:12 | Day surgery (SDC) | payer BC ==
[~2021-12-03 07:12] MED LIST changes: -Glycopyrrolate 0.2 MG/ML SDV ONE; +HYDROmorphone 1 MG/ML Syringe IVPUSH PRN; -HYDROmorphone 2 MG/ML Syringe IVPUSH PRN; -Ketorolac 30 MG/ML SDV ONE; -Lactated Ringers 1,000 ML IV SCH; -Lidocaine 2% 5 ML SDV ONE; -Midazolam 1 MG/ML 2 ML SDV ONE; +Naloxone 0.4 MG/ML SDV IVPUSH PRN; -Naloxone 0.4 MG/ML Syringe IVPUSH PRN; -Ondansetron 4 MG/2 ML SDV ONE; -Propofol 200 MG/20 ML SDV ONE; +Sodium Chloride 0.9% 10 ML Syringe FLUSH PRN; +Sodium Chloride 0.9% 2.5 ML Syringe FLUSH PRN; +Sodium Chloride 0.9% 20 ML SDV IV PRN
[2021-12-03] MEDS ORDERED: Lidocaine 2% 100 MG/5 ML Syringe ONE (07:14)
[2021-12-03] MEDS ORDERED: Ondansetron 4 MG/2 ML SDV ONE (07:14)
[2021-12-03] MEDS ORDERED: propofoL 100 ML ONE (07:15)
[2021-12-03] MEDS ORDERED: Dexamethasone 4 MG/ML 5 ML MDV ONE (08:31)
[2021-12-03] MEDS ORDERED: Dexmedetomidine 200 MCG/2 ML SDV ONE (08:35)
[2021-12-03] MEDS ORDERED: Midazolam 1 MG/ML 2 ML SDV ONE (08:35)
[2021-12-03] MEDS ORDERED: Ketorolac 30 MG/ML SDV ONE (08:48)
[2021-12-03 10:28] VITALS: BP 98/56; PULSE 66
== END 2021-12-03 10:30 | disposition home or self-care (01) ==
LOC: MW.SDS 07:12
PROVIDERS: ATTEND Obstetrics & Gynecology
DX: O03.9 Complete or unspecified spontaneous abortion without complication (principal); Z79.899 Other long term (current) drug therapy; Z98.890 Other specified postprocedural states; Z87.891 Personal history of nicotine dependence
CPT/HCPCS: 59820; J1100; J1885; J2250; J2405; J2704; J3010; 01965

== ENCOUNTER 2022-05-13 11:44 | Emergency (ER) | payer BC ==
[2022-05-13 15:51] LABS: CARBON DIOXIDE,CO2 26.9 mmol/L (21.0-32.0); POTASSIUM,K 4.2 mmol/L (3.5-5.1)
[2022-05-13 16:12] LABS: CORONAVIRUS COVID-19 NAA NEGATIVE (NEGATIVE); INFLUENZA A NAA NEGATIVE (NEGATIVE); INFLUENZA B NAA NEGATIVE (NEGATIVE)
[2022-05-13] MEDS ORDERED: Ketorolac 30 MG/ML SDV IVPUSH ONE (16:26)
[2022-05-13] MEDS ORDERED: Ondansetron 4 MG/2 ML SDV IVPUSH ONE (16:26)
[2022-05-13] MEDS ORDERED: Sodium Chloride 0.9% 1,000 ML IV ONE (16:26)
[2022-05-13] MEDS ORDERED: Iopamidol 755 MG/ML 500 ML Multipack Bottle IVPUSH STA (17:06)
[2022-05-13 20:45] VITALS: BP 105/47; PULSE 70
== END 2022-05-13 19:03 | disposition home or self-care (01) ==
LOC: MW.ED 11:44
DX: R10.13 Epigastric pain (principal); R11.10 Vomiting, unspecified; Z20.822 Contact with and (suspected) exposure to COVID-19
CPT/HCPCS: 0240U; 36415; 74178; 80053; 81001; 84703; 85025; 96361; 96374; 96375; 99284; J1885; J2405; J7030; Q9967; 99283

== ENCOUNTER 2023-08-25 20:14 | Emergency (ER) | payer BC ==
[2023-08-25] MEDS ORDERED: Ondansetron 4 MG/2 ML SDV IVPUSH ONE (21:48)
[2023-08-25] MEDS ORDERED: Sodium Chloride 0.9% 10 ML Syringe FLUSH PRN (21:48)
[2023-08-25] MEDS ORDERED: Sodium Chloride 0.9% 2.5 ML Syringe FLUSH PRN (21:48)
[2023-08-25] MEDS ORDERED: Sodium Chloride 0.9% 1,000 ML IV ONE (21:48)
[2023-08-25 21:58] LABS: APPEARANCE,URINE CLEAR; BILIRUBIN,URINE NEGATIVE (NEGATIVE); COLOR,URINE YELLOW; GLUCOSE,URINE NEGATIVE (NEGATIVE); KETONES,URINE TRACE mg/dL (NEGATIVE); LEUKOCYTE ESTERASE,URINE NEGATIVE (NEGATIVE); NITRITE,URINE NEGATIVE (NEGATIVE); OCCULT BLOOD,URINE NEGATIVE (NEGATIVE); PH,URINE 6.5 (5.0-8.0); PROTEIN,URINE NEGATIVE (NEGATIVE); UROBILINOGEN,URINE 0.2 EU/dL (<2.0)
[2023-08-25 22:04] LABS: BASOPHILS ABSOLUTE AUTO 0.05 K/uL (0.00-0.20); BASOPHILS PERCENT AUTO 0.5 % (0.0-1.0); EOSINOPHILS ABSOLUTE AUTO 0.29 K/uL (0.00-0.45); EOSINOPHILS PERCENT AUTO 2.9 % (0.0-6.0); HEMATOCRIT 37.9 % (37.0-47.0); HEMOGLOBIN 13.4 g/dL (12.0-16.0); IMMATURE GRAN ABSOLUTE AUTO 0.02 K/uL (0.00-0.05); IMMATURE GRAN PERCENT AUTO 0.2 % (0.0-0.4); LYMPHOCYTES ABSOLUTE AUTO 3.62 K/uL (1.00-4.80); LYMPHOCYTES PERCENT AUTO 36.3 % (24.0-44.0); MEAN CORPUSCULAR HEMOGLOBIN 30.8 pg (28.0-32.0); MEAN CORPUSCULAR HGB CONC 35.4 g/dL (32.0-36.0); MEAN CORPUSCULAR VOLUME 87.1 fL (83.0-99.0); MEAN PLATELET VOLUME 10.4 fL (9.4-12.3); MONOCYTES ABSOLUTE AUTO 0.72 K/uL (0.00-0.80); MONOCYTES PERCENT AUTO 7.2 % (0.0-8.0); NEUTROPHILS ABSOLUTE AUTO 5.3 K/uL (1.8-7.7); NEUTROPHILS PERCENT AUTO 52.9 % (41.0-71.0); PLATELET COUNT,PLT 238 K/uL (150-400); RED BLOOD CELL COUNT 4.35 M/uL (4.10-5.30); WHITE BLOOD CELL COUNT,WBC 9.98 K/uL (3.9-11.3)
[2023-08-25 22:08] LABS: A/G RATIO 0.8 (0.9-1.6); ALBUMIN 3.2 g/dL (3.4-5.0); BILIRUBIN TOTAL 0.3 mg/dL (0.2-1.0); CARBON DIOXIDE,CO2 23.4 mmol/L (21.0-32.0); CREATININE 0.7 mg/dL (0.6-1.0); EST CRCL DRUG DOSING (CG) 101.48 mL/min; MAGNESIUM 1.9 mg/dL (1.8-2.4); POTASSIUM,K 3.7 mmol/L (3.5-5.1); PROTEIN TOTAL,TP 7.3 g/dL (6.4-8.2)
[2023-08-25] MEDS ORDERED: Lactated Ringers 1,000 ML IV ONE (22:31)
[2023-08-25] MEDS ORDERED: Sucralfate Suspension 1 GM/10 ML Cup PO ONE (22:36)
[2023-08-25] MEDS ORDERED: Famotidine 20 MG/2 ML SDV IVPUSH ONE (22:36)
[2023-08-25 22:48] LABS: CORONAVIRUS COVID-19 NAA NEGATIVE (NEGATIVE); INFLUENZA A NAA NEGATIVE (NEGATIVE); INFLUENZA B NAA NEGATIVE (NEGATIVE); RESPIRATORY SYNCYTIAL VIR NAA NEGATIVE (NEGATIVE)
[2023-08-26 00:26] VITALS: BP 115/64; PULSE 74
== END 2023-08-26 00:10 | disposition home or self-care (01) ==
LOC: MW.ED 20:14
DX: O21.9 Vomiting of pregnancy, unspecified (principal); Z98.890 Other specified postprocedural states; Z20.822 Contact with and (suspected) exposure to COVID-19; Z3A.11 11 weeks gestation of pregnancy
CPT/HCPCS: 0241U; 36415; 80053; 81003; 83690; 83735; 85025; 96361; 96374; 96375; 99284; A9270; J2405; J3490; J7030; J7120

== ENCOUNTER 2024-03-08 04:59 | Inpatient (IN) | payer BC ==
[2024-03-08] MEDS ORDERED: ceFAZolin 2 GM in Sodium Chloride 0.9% 50 ML IV ONE (05:06)
[2024-03-08] MEDS ORDERED: Sodium Chloride 0.9% 10 ML Syringe FLUSH PRN (05:06)
[2024-03-08] MEDS ORDERED: Sodium Chloride 0.9% 2.5 ML Syringe FLUSH PRN (05:06)
[2024-03-08] MEDS ORDERED: Sodium Chloride 0.9% 20 ML SDV IV PRN (05:06)
[2024-03-08] MEDS ORDERED: Citric Acid/Sodium Citrate Solution 30 ML Cup PO ONE (05:06)
[2024-03-08] MEDS ORDERED: Oxytocin/0.9 % Sodium Chloride 30 UNIT/500 ML BAG IV SCH (05:15)
[2024-03-08] MEDS: Lactated Ringers 1,000 ML IV SCH (05:26)
[2024-03-08 06:02] LABS: HEMATOCRIT 37.3 % (37.0-47.0); HEMOGLOBIN 12.8 g/dL (12.0-16.0); MEAN CORPUSCULAR HEMOGLOBIN 30.9 pg (28.0-32.0); MEAN CORPUSCULAR HGB CONC 34.3 g/dL (32.0-36.0); MEAN CORPUSCULAR VOLUME 90.1 fL (83.0-99.0); MEAN PLATELET VOLUME 11.4 fL (9.4-12.3); PLATELET COUNT,PLT 172 K/uL (150-400); RED BLOOD CELL COUNT 4.14 M/uL (4.10-5.30); WHITE BLOOD CELL COUNT,WBC 10.18 K/uL (3.9-11.3)
[2024-03-08] MEDS ORDERED: Acetaminophen/oxyCODONE 325-5 MG Tab PO PRN ×2 (07:15→08:55)
[2024-03-08] MEDS ORDERED: Albuterol 0.083% 2.5 MG/3 ML Neb Soln NEB PRN (07:15)
[2024-03-08] MEDS ORDERED: droPERidol 5 MG/2 ML SDV IVPUSH PRN (07:15)
[2024-03-08] MEDS ORDERED: diphenhydrAMINE 50 MG/ML SDV IVPUSH PRN (07:15)
[2024-03-08] MEDS ORDERED: Ondansetron 4 MG/2 ML SDV IVPUSH PRN ×2 (07:15)
[2024-03-08] MEDS ORDERED: Naloxone 0.4 MG/ML SDV IVPUSH PRN (07:15)
[2024-03-08] MEDS ORDERED: ePHEDrine 50 MG/ML SDV IVPUSH PRN (07:15)
[2024-03-08] MEDS ORDERED: fentaNYL 50 MCG/ML SDV IVPUSH PRN (07:15)
[2024-03-08] MEDS ORDERED: HYDROmorphone 1 MG/ML Syringe IVPUSH PRN (07:15)
[2024-03-08] MEDS ORDERED: Metoclopramide 10 MG/2 ML SDV IVPUSH PRN (07:15)
[2024-03-08] MEDS ORDERED: fentaNYL 100 MCG/2 ML SDV IVPUSH PRN (07:15)
[2024-03-08] MEDS ORDERED: Morphine 2 MG/ML SYRINGE IVPUSH PRN (07:15)
[2024-03-08] MEDS ORDERED: fentaNYL 100 MCG/2 ML SDV ONE (07:32)
[2024-03-08] MEDS ORDERED: Ketorolac 30 MG/ML SDV ONE (07:32)
[2024-03-08] MEDS ORDERED: EPINEPHrine 1 MG/1 ML Amp ONE (07:32)
[2024-03-08] MEDS ORDERED: Morphine PF 10 MG/10 ML SDV ONE (07:32)
[2024-03-08] MEDS ORDERED: Ropivacaine 0.5% 5 MG/ML 30 ML SDV ONE (07:32)
[2024-03-08] MEDS ORDERED: Bupivacaine 0.25% 30 ML SDV ONE (07:32)
[2024-03-08] MEDS ORDERED: Ondansetron 4 MG/2 ML SDV ONE ×2 (07:32→07:36)
[2024-03-08] MEDS ORDERED: ceFAZolin 1 GM Vial ONE (07:32)
[2024-03-08] MEDS ORDERED: Oxytocin 10 Units/1 ML SDV ONE (07:32)
[2024-03-08] MEDS ORDERED: Phenylephrine HCl In 0.9% NaCl 1 MG/10 ML Syringe ONE ×4 (08:05→08:59)
[2024-03-08] MEDS ORDERED: ePHEDrine 50 MG/ML SDV ONE (08:50)
[2024-03-08] MEDS ORDERED: Bisacodyl 10 MG Supp RECTAL PRN (08:55)
[2024-03-08] MEDS ORDERED: Methylergonovine 0.2 MG/1 ML Amp IM PRN (08:55)
[2024-03-08] MEDS ORDERED: Misoprostol 200 MCG Tab RECTAL PRN (08:55)
[2024-03-08] MEDS ORDERED: Oxytocin 10 Units/1 ML SDV IM PRN (08:55)
[2024-03-08] MEDS ORDERED: Lactated Ringers 1,000 ML IV SCH (09:00)
[2024-03-08 09:37] LABS: PH,UMBILICAL ARTERIAL 7.284 (7.18-7.38); PH,UMBILICAL VENOUS 7.299 (7.25-7.45)
[2024-03-08] MEDS ORDERED: Acetaminophen 1,000 MG in Premix Bag 1 BAG IV SCH (10:00)
[2024-03-08] MEDS: Ketorolac 30 MG/ML SDV IVPUSH SCH (12:07)
[2024-03-08] MEDS: Simethicone 80 MG Tab.Chew PO SCH (12:22)
[2024-03-08] MEDS: Ondansetron 4 MG/2 ML SDV IVPUSH PRN (12:22)
[2024-03-08] MEDS: Acetaminophen 1,000 MG in Premix Bag 1 BAG IV SCH (12:23)
[2024-03-08] MEDS: Docusate Sodium 100 MG Cap PO SCH (12:39)
[2024-03-08] MEDS: diphenhydrAMINE 50 MG/ML SDV IVPUSH PRN (14:47)
[2024-03-08] MEDS: Lanolin 100% Cream 7 GM Tube TOP PRN (15:59)
[2024-03-09 04:28] LABS: HEMATOCRIT 31.5 % (37.0-47.0); HEMOGLOBIN 10.6 g/dL (12.0-16.0)
[2024-03-09] MEDS: Acetaminophen/oxyCODONE 325-5 MG Tab PO PRN (12:55)
[2024-03-09] MEDS: Ibuprofen 800 MG Tab PO PRN (15:32)
[2024-03-10 13:56] VITALS: BP 119/61; PULSE 76
== END 2024-03-10 13:52 | disposition home or self-care (01) | DRG 540 ==
LOC: MW.OB 04:59
PROVIDERS: ADMIT Obstetrics & Gynecology; ATTEND Obstetrics & Gynecology
PROC: 10D00Z1 Extraction of Products of Conception, Low, Open Approach (ICD-10-PCS; principal; 2024-03-08 08:00)
DX: O34.211 Maternal care for low transverse scar from previous cesarean delivery (principal); Z3A.38 38 weeks gestation of pregnancy; O99.824 Streptococcus B carrier state complicating childbirth; Z37.0 Single live birth
CPT/HCPCS: 36415; 64488; 82803; 85014; 85018; 85027; 86592; 86850; 86900; 86901; A9270-GY; J0131; J0171; J0665; J0690; J1100; J1200; J1885; J2274; J2371; J2405; J2590; J2795; J3010; J3490; J7120

== ENCOUNTER 2024-05-22 11:46 | Observation (INO) | payer BC ==
[2024-05-22] MEDS: Ondansetron 4 MG Tab.DIS PO ONE (13:12)
[2024-05-22] MEDS: Morphine 2 MG/ML SYRINGE IVPUSH ONE ×2 (14:24→17:06)
[2024-05-22] MEDS: Sodium Chloride 0.9% 10 ML Syringe FLUSH PRN (14:24)
[2024-05-22] MEDS: Ondansetron 4 MG/2 ML SDV IVPUSH ONE (14:24)
[2024-05-22] MEDS: Sodium Chloride 0.9% 2.5 ML Syringe FLUSH PRN (14:24)
[2024-05-22 14:32] LABS: BASOPHILS ABSOLUTE AUTO 0.03 K/uL (0.00-0.20); BASOPHILS PERCENT AUTO 0.3 % (0.0-1.0); EOSINOPHILS ABSOLUTE AUTO 0.39 K/uL (0.00-0.45); EOSINOPHILS PERCENT AUTO 4.4 % (0.0-6.0); HEMOGLOBIN 13.5 g/dL (12.0-16.0); IMMATURE GRAN ABSOLUTE AUTO 0.02 K/uL (0.00-0.05); IMMATURE GRAN PERCENT AUTO 0.2 % (0.0-0.4); LYMPHOCYTES ABSOLUTE AUTO 2.86 K/uL (1.00-4.80); LYMPHOCYTES PERCENT AUTO 32.2 % (24.0-44.0); MEAN CORPUSCULAR HEMOGLOBIN 30.3 pg (28.0-32.0); MEAN CORPUSCULAR HGB CONC 33.8 g/dL (32.0-36.0); MEAN CORPUSCULAR VOLUME 89.7 fL (83.0-99.0); MEAN PLATELET VOLUME 10.4 fL (9.4-12.3); NEUTROPHILS ABSOLUTE AUTO 4.77 K/uL (1.80-7.70); NEUTROPHILS PERCENT AUTO 53.9 % (41.0-71.0); PLATELET COUNT,PLT 201 K/uL (150-400); RED BLOOD CELL COUNT 4.46 M/uL (4.10-5.30); WHITE BLOOD CELL COUNT,WBC 8.87 K/uL (3.9-11.3)
[2024-05-22 14:58] LABS: CALCIUM 9.3 mg/dL (8.5-10.1); CARBON DIOXIDE,CO2 29.2 mmol/L (21.0-32.0); CREATININE 0.9 mg/dL (0.6-1.0); EST CRCL DRUG DOSING (CG) 78.21 mL/min; POTASSIUM,K 4.1 mmol/L (3.5-5.1)
[2024-05-22] MEDS: Iopamidol 755 MG/ML 500 ML Multipack Bottle IVPUSH STA (15:46)
[2024-05-22] MEDS: metroNIDAZOLE/Normal Saline 500 MG in Premix Bag 1 BAG IV ONE (16:38)
[2024-05-22] MEDS: cefTRIAXone 1 GM in Sodium Chloride 0.9% 50 ML IV ONE (16:38)
[2024-05-22] MEDS ORDERED: Promethazine 25 MG Tab PO PRN (18:05)
[2024-05-22] MEDS ORDERED: Ondansetron 4 MG Tab.DIS PO PRN (18:05)
[2024-05-22] MEDS ORDERED: Ketorolac 30 MG/ML SDV IM PRN (18:05)
[2024-05-22] MEDS ORDERED: Naloxone 0.4 MG/ML SDV IVPUSH PRN (18:05)
[2024-05-22] MEDS: Morphine 2 MG/ML SYRINGE IVPUSH PRN (18:33)
[2024-05-22] MEDS: Acetaminophen/HYDROcodone 325-5 MG Tab PO PRN (19:21)
[2024-05-22] MEDS: Enoxaparin 40 MG/0.4 ML Syringe SUBCUT SCH (20:02)
[2024-05-23] MEDS: metroNIDAZOLE/Normal Saline 500 MG in Premix Bag 1 BAG IV SCH (00:43)
[2024-05-23] MEDS: Ketorolac 30 MG/ML SDV IVPUSH ONE (03:44)
[2024-05-23 06:03] LABS: BASOPHILS ABSOLUTE AUTO 0.02 K/uL (0.00-0.20); BASOPHILS PERCENT AUTO 0.3 % (0.0-1.0); EOSINOPHILS ABSOLUTE AUTO 0.26 K/uL (0.00-0.45); EOSINOPHILS PERCENT AUTO 3.9 % (0.0-6.0); HEMATOCRIT 38.8 % (37.0-47.0); HEMOGLOBIN 12.8 g/dL (12.0-16.0); IMMATURE GRAN ABSOLUTE AUTO 0.01 K/uL (0.00-0.05); IMMATURE GRAN PERCENT AUTO 0.1 % (0.0-0.4); LYMPHOCYTES ABSOLUTE AUTO 2.41 K/uL (1.00-4.80); MEAN CORPUSCULAR HEMOGLOBIN 29.8 pg (28.0-32.0); MEAN CORPUSCULAR VOLUME 90.4 fL (83.0-99.0); MEAN PLATELET VOLUME 10.5 fL (9.4-12.3); MONOCYTES ABSOLUTE AUTO 0.51 K/uL (0.00-0.80); MONOCYTES PERCENT AUTO 7.6 % (0.0-8.0); NEUTROPHILS ABSOLUTE AUTO 3.49 K/uL (1.80-7.70); NEUTROPHILS PERCENT AUTO 52.1 % (41.0-71.0); PLATELET COUNT,PLT 189 K/uL (150-400); RED BLOOD CELL COUNT 4.29 M/uL (4.10-5.30)
[2024-05-23 06:32] LABS: ALBUMIN 3.5 g/dL (3.4-5.0); BILIRUBIN TOTAL 0.5 mg/dL (0.2-1.0); CALCIUM 8.7 mg/dL (8.5-10.1); CARBON DIOXIDE,CO2 29.2 mmol/L (21.0-32.0); CREATININE 0.8 mg/dL (0.6-1.0); EST CRCL DRUG DOSING (CG) 87.99 mL/min; POTASSIUM,K 3.9 mmol/L (3.5-5.1); PROTEIN TOTAL,TP 7.1 g/dL (6.4-8.2)
[2024-05-23] MEDS: Acetaminophen 325 MG Tab PO PRN (08:01)
[2024-05-23] MEDS: Ketorolac 30 MG/ML SDV IVPUSH SCH (12:59)
[2024-05-23] MEDS: cefTRIAXone 1 GM in Sodium Chloride 0.9% 50 ML IV SCH (16:30)
[2024-05-24 06:06] LABS: BASOPHILS ABSOLUTE AUTO 0.02 K/uL (0.00-0.20); BASOPHILS PERCENT AUTO 0.4 % (0.0-1.0); EOSINOPHILS ABSOLUTE AUTO 0.26 K/uL (0.00-0.45); EOSINOPHILS PERCENT AUTO 5.2 % (0.0-6.0); HEMATOCRIT 39.4 % (37.0-47.0); HEMOGLOBIN 12.7 g/dL (12.0-16.0); IMMATURE GRAN ABSOLUTE AUTO 0.01 K/uL (0.00-0.05); IMMATURE GRAN PERCENT AUTO 0.2 % (0.0-0.4); LYMPHOCYTES ABSOLUTE AUTO 2.37 K/uL (1.00-4.80); LYMPHOCYTES PERCENT AUTO 47.5 % (24.0-44.0); MEAN CORPUSCULAR HEMOGLOBIN 29.1 pg (28.0-32.0); MEAN CORPUSCULAR HGB CONC 32.2 g/dL (32.0-36.0); MEAN CORPUSCULAR VOLUME 90.2 fL (83.0-99.0); MONOCYTES ABSOLUTE AUTO 0.45 K/uL (0.00-0.80); NEUTROPHILS ABSOLUTE AUTO 1.88 K/uL (1.80-7.70); NEUTROPHILS PERCENT AUTO 37.7 % (41.0-71.0); PLATELET COUNT,PLT 197 K/uL (150-400); RED BLOOD CELL COUNT 4.37 M/uL (4.10-5.30); WHITE BLOOD CELL COUNT,WBC 4.99 K/uL (3.9-11.3)
[2024-05-24 06:34] LABS: A/G RATIO 0.9 (0.9-1.6); ALBUMIN 3.4 g/dL (3.4-5.0); BILIRUBIN TOTAL 0.5 mg/dL (0.2-1.0); CALCIUM 9.2 mg/dL (8.5-10.1); CARBON DIOXIDE,CO2 32.1 mmol/L (21.0-32.0); CREATININE 0.7 mg/dL (0.6-1.0); EST CRCL DRUG DOSING (CG) 100.55 mL/min; POTASSIUM,K 4.4 mmol/L (3.5-5.1); PROTEIN TOTAL,TP 7.2 g/dL (6.4-8.2)
[2024-05-24 12:07] VITALS: BP 117/69; PULSE 83
== END 2024-05-24 13:00 | disposition home or self-care (01) ==
LOC: MW.ED 11:46 → MW.MS 16:43
PROVIDERS: ADMIT Internal Medicine; ATTEND Internal Medicine
DX: L03.211 Cellulitis of face (principal); K04.7 Periapical abscess without sinus; F41.8 Other specified anxiety disorders; E66.9 Obesity, unspecified; Z79.899 Other long term (current) drug therapy; Z68.30 Body mass index [BMI] 30.0-30.9, adult; Z79.2 Long term (current) use of antibiotics
CPT/HCPCS: 36415; 70491; 80048; 80053; 84703; 85025; 96365; 96367; 96375; 96376; 99284; A9270; J0696; J1650; J1836; J1885; J2270; J2405; J3490; Q9967; 96366; 96372; G0378